=== PATIENT | female | born 1965 | race Caucasian/White ===

== ENCOUNTER 2022-09-07 10:41 | Outpatient (CLI) | payer BC, SELFPAY | END 2022-09-07 10:42 | disposition home or self-care (01) | PROVIDERS: PCP Nurse Practitioner Family; Visit Provider Nurse Practitioner Family | DX: Z00.00 Encounter for general adult medical examination without abnormal findings (principal); R53.83 Other fatigue; R73.9 Hyperglycemia, unspecified; E78.5 Hyperlipidemia, unspecified; R35.1 Nocturia | CPT/HCPCS: 80053; 80061; 81015; 84443; 85025; 87086 ==

== ENCOUNTER 2022-10-26 07:47 | Outpatient (CLI) | payer BC, SELFPAY ==
--- NOTE | 2022-10-26 10:27 | W.ANESCHARGE ---
Anesthesia Charges Start Date/Time Anesthesia Start Date: 10/26/22 Anesthesia Start Time: 09:26 Stop Date/Time Anesthesia Stop Date: 10/26/22 Anesthesia Stop Time: 10:18
== END 2022-10-26 07:48 | disposition home or self-care (01) ==
LOC: OP CLINIC 07:48
PROVIDERS: PCP Nurse Practitioner Family; Visit Provider Surgery
DX: Z12.11 Encounter for screening for malignant neoplasm of colon (principal); K63.5 Polyp of colon; K57.30 Diverticulosis of large intestine without perforation or abscess without bleeding; K62.1 Rectal polyp; K64.4 Residual hemorrhoidal skin tags; Z86.010 Personal history of colon polyps
CPT/HCPCS: 45385; 811; 88305; J2704

== ENCOUNTER 2022-11-17 17:25 | Outpatient (CLI) | payer BC, SELFPAY ==
--- NOTE | 2022-11-17 18:00 | CRLHL7_ITS ---
For Patients: As a result of the Century Cures Act, medical imaging exams and procedure reports are released immediately into your electronic medical record. You may view this report before your referring provider. If you have questions, please contact your health care provider. BILATERAL DIGITAL SCREENING MAMMOGRAM WITH TOMOSYNTHESIS AND COMPUTER-AIDED DETECTION CLINICAL HISTORY: Routine screening exam. COMPARISON: 02/06/2021, 01/23/2021, 11/14/2018. TECHNIQUE: Digital mammogram in CC and MLO projections including computer-aided detection (CAD). Tomosynthesis utilized. BREAST COMPOSITION: The breasts are heterogeneously dense, which may obscure small masses. FINDINGS: RIGHT Breast: No suspicious findings. LEFT Breast: Asymmetric density within the lower outer quadrant 9 cm from the nipple. IMPRESSION: LEFT breast asymmetry/mass. RECOMMENDATIONS: Additional mammographic views of the LEFT breast including 3D spot compression CC/MLO. LEFT breast ultrasound may also be required. BI-RADS Category 0: Incomplete: Need Additional Imaging Evaluation and/or Prior Mammograms for Comparison [facility] will contact the patient for follow-up. A lay language report of this examination will be provided to the patient. Dictated by Mohit Maharaj MD @ 11/18/2022 11:57:56 AM jj/Dictated by: Mohit Maharaj MD @ 11/18/2022 11:57:00 AM (Electronically Signed)
== END 2022-11-17 17:26 | disposition home or self-care (01) ==
LOC: MAMMO 17:26
PROVIDERS: PCP Nurse Practitioner Family; Visit Provider Nurse Practitioner Family
DX: Z12.31 Encounter for screening mammogram for malignant neoplasm of breast (principal); N63.20 Unspecified lump in the left breast, unspecified quadrant; R92.2 Inconclusive mammogram
CPT/HCPCS: 77063; 77067

== ENCOUNTER 2022-11-25 07:34 | Outpatient (CLI) | payer BC, SELFPAY ==
--- NOTE | 2022-11-25 07:45 | CRLHL7_ITS ---
For Patients: As a result of the Cures Act, medical imaging exams and procedure reports are released immediately into your electronic medical record. You may view this report before your referring provider. If you have questions, please contact your health care provider. LEFT DIAGNOSTIC MAMMOGRAM WITH COMPUTER-AIDED DETECTION AND TOMOSYNTHESIS LEFT BREAST ULTRASOUND CLINICAL HISTORY: LEFT breast mass/asymmetry. COMPARISON: 11/17/22, 02/06/2021, 06/21/2010, 11/14/2018. TECHNIQUE: Digital LEFT mammogram in 2 projections. Computer-aided detection and tomosynthesis were used. Real-time ultrasound imaging of LEFT breast with imaging documentation. BREAST COMPOSITION: The breasts are heterogeneously dense, which may obscure small masses FINDINGS: 3D spot compression cc/MLO LEFT breast mammogram images submitted. Persistent asymmetric density noted within the lower outer quadrant of the LEFT breast. Mild associated distortion may be present as well. No suspicious calcifications. Targeted LEFT breast ultrasound performed in the lower outer quadrant at 4 o`clock 8 cm from the nipple. In this location there is heterogeneously dense tissue which is difficult to definitively measure. Subtle shadowing is suspected as well. This area measures approximately 3.8 x 3.2 cm. IMPRESSION: Ill-defined area of indeterminate dense heterogeneous tissue in the LEFT breast 4 o`clock 8 cm from the nipple with suggestion of faint shadowing. RECOMMENDATIONS: Ultrasound-guided core needle biopsy recommended. BI-RADS Category 4: Suspicious Results and recommendations discussed with the patient. A lay language report of this examination will be provided to the patient. Dictated by Mohit Maharaj MD @ 11/25/2022 12:49:05 PM/julianne ANJANA/Dictated by: Mohit Maharaj MD @ 11/25/2022 12:49:00 PM (Electronically Signed)
--- NOTE | 2022-11-25 08:15 | CRLHL7_ITS ---
For Patients: As a result of the Century Cures Act, medical imaging exams and procedure reports are released immediately into your electronic medical record. You may view this report before your referring provider. If you have questions, please contact your health care provider. PLEASE SEE LEFT DIAGNOSTIC MAMMOGRAM OF SAME DAY. CRL:julianne ANJANA/Dictated by: Mohit Maharaj MD @ 11/25/2022 12:49:00 PM (Electronically Signed)
== END 2022-11-25 07:35 | disposition home or self-care (01) ==
LOC: MAMMO 07:35
PROVIDERS: PCP Nurse Practitioner Family; Visit Provider Nurse Practitioner Family
DX: N63.20 Unspecified lump in the left breast, unspecified quadrant (principal); R92.8 Other abnormal and inconclusive findings on diagnostic imaging of breast
CPT/HCPCS: 76642; 77065; G0279

== ENCOUNTER 2022-12-01 09:54 | Outpatient (CLI) | payer BC, SELFPAY ==
--- NOTE | 2022-12-01 10:56 | CRLHL7_ITS ---
Patient: JEREMIAH GONZÁLES Facility:?[facility] Patient ID:?[id number] Site Patient ID:?[id number]. Site :?[id number] Study:?US-Breast Procedure -12/01/2022 11:07:17 AM Ordering Physician:Neel Shook Final Report: ADDENDUM: Pathology consistent with invasive lobular carcinoma. This is concordant. Appropriate action recommended. Dictated by: Mohit Maharaj MD @12/09/2022 10:51:34 AM / CRL:shar ULTRASOUND-GUIDED BREAST BIOPSY AND POST-BIOPSY DIGITAL MAMMOGRAM FOR BIOPSY MARKER PLACEMENT CLINICAL HISTORY: Indeterminate suspicious lesion. COMPARISON STUDIES: 11/25/2022, 11/17/2022. TECHNIQUE: Real-time ultrasound with image documentation was used for targeting the breast lesion. Core biopsy specimens were obtained using an automated gun with a 18- gauge biopsy needle. Post-biopsy CC and ML digital mammograms were obtained to document position of the biopsy marker. CONSENT and TIME OUT: The procedure, risks, and alternatives were explained to the patient and a consent was signed. Herreid Protocol was followed including pre-procedure verification that relevant information/documentation was available, reviewed and properly matched to the patient; consent accurate and complete; and equipment and supplies available. Time Out was conducted just prior to starting procedure to verify the four required elements: patient identity, correct side/site marked (if applicable), procedure, relevant images/results properly labeled and displayed (if applicable). PROCEDURE: The patient was positioned supine on the ultrasound table. The breast was prepped with ChloraPrep. 8 cc 1 percent lidocaine used for local anesthesia. Core samples were obtained. A sterile metal biopsy clip was placed percutaneously to anju the lesion position within the breast. The specimens were placed in 10% formalin and sent to the pathology department. Pressure was held on the biopsy site until all bleeding subsided. The skin incision was closed with Steri-Strips. An ice pack was positioned over the biopsy site. Post-biopsy instructions were reviewed with the patient, and a written copy was given to her. LATERALITY: LEFT breast. LESION: Ill-defined heterogeneously hypoechoic lesion measuring approximately 3.8 cm at 4 o`clock 8 cm from the nipple. SUSPICION FOR MALIGNANCY: High. NUMBER OF SAMPLES: 5. BIOPSY CLIP SHAPE: Oval. PROXIMITY OF CLIP TO TARGET: Within. IMPRESSION: Ultrasound-guided breast biopsy. When the pathology report is available, an addendum to this report will be made. ACR not applicable Dictated by Mohit Maharaj MD @ 12/01/2022 12:11:02 PM/julianne ANJANA/Dictated by: Mohit Maharaj MD @ 12/01/2022 12:11:00 PM Signed by: Mohit Maharaj @ 12/02/2022 5:26:50 AM (Electronic Signature) Signed by:?Mohit Maharaj MD @12/09/2022 12:35:56 PM (Electronic Signature)
--- NOTE | 2022-12-01 11:00 | CRLHL7_ITS ---
For Patients: As a result of the Century Cures Act, medical imaging exams and procedure reports are released immediately into your electronic medical record. You may view this report before your referring provider. If you have questions, please contact your health care provider. PLEASE SEE LEFT ULTRASOUND-GUIDED BIOPSY OF SAME DAY. CRL:julianne ANJANA/Dictated by: Mohit Maharaj MD @ 12/01/2022 12:11:00 PM (Electronically Signed)
== END 2022-12-01 09:55 | disposition home or self-care (01) ==
LOC: MAMMO 09:54
PROVIDERS: PCP Nurse Practitioner Family; Visit Provider Nurse Practitioner Family
DX: N63.20 Unspecified lump in the left breast, unspecified quadrant (principal); R92.8 Other abnormal and inconclusive findings on diagnostic imaging of breast
CPT/HCPCS: 19083; 77065; 88305; 88360; 88361; A4648; A4649

== ENCOUNTER 2022-12-07 13:25 | Outpatient (CLI) | payer BC, SELFPAY ==
--- NOTE | 2022-12-07 13:45 | CRLHL7_ITS ---
For Patients: As a result of the 21st Century Cures Act, medical imaging exams and procedure reports are released immediately into your electronic medical record. You may view this report before your referring provider. If you have questions, please contact your health care provider. BILATERAL BREAST MRI WITHOUT AND WITH GADOLINIUM, 12/08/2022 CLINICAL HISTORY: New diagnosis LEFT breast cancer, invasive lobular carcinoma ERPR positive. INDICATION FOR BREAST MRI: Staging of newly diagnosed breast cancer and screening of contralateral breast. Regional lymph nodes will also be assessed. COMPARISON STUDIES: 01/23/2021, 02/06/2021, 11/17/2022, 11/25/2022, 12/01/2022. CONTRAST: Dotarem 15 mL. TECHNIQUE: The patient was positioned prone using a breast coil. Multiple imaging sequences were obtained using 1-1.5 mm thick slices with no gap. The image sequences include T2-weighted STIR in the axial plane, T1-weighted nonfat-saturated gradient echo in the axial plane, pre- and post-contrast T1-weighted FLASH 3D with fat suppression in the axial plane, and T1-weighted FLASH high resolution 3D with fat suppression in the sagittal plane. Image post-processing was performed on a [employer] workstation. Complex 3D rendering including maximum intensity projections (MIPS) and volumetric renderings were obtained to optimize visualization of the extent of pathology and relationship to the nipple, skin, and chest wall. This aids in determining feasibility of breast conservation surgery. Subtraction, multiplanar reconstruction, mean curve determination, and angiogenesis mapping were also performed. The study was technically adequate. FINDINGS: Amount of Fibroglandular Tissue: Heterogeneous. Breast Background Enhancement: Mild. RIGHT Breast: No suspicious mass or non-mass enhancement. LEFT Breast: At the site of the newly diagnosed breast cancer there is a large area of architectural distortion. No real increased vascularity. No discrete mass identified. Approximate size of the distortion with minimal enhancement is 6 x 5 x 3 cm. Lymph Nodes: No suspicious lymph nodes. IMPRESSIONS AND RECOMMENDATIONS: Newly diagnosed LEFT breast cancer is not well visualized on MRI. Approximate size is 6 x 5 x 3 cm. There is an area of architectural distortion but no increased enhancement. Recommend using ultrasound and mammography to determine extent of disease. Consider either stereotactic core biopsy or second ultrasound biopsy to determine disease extent if this would impact treatment. The RIGHT breast is negative. No enlarged lymph nodes. BI-RADS Category 6: Known biopsy-proven malignancy Dictated by Randi Meyer MD @ 12/09/2022 10:48:47 AM jj/Dictated by: Randi Meyer MD @ 12/09/2022 10:49:00 AM (Electronically Signed)
== END 2022-12-07 13:26 | disposition home or self-care (01) ==
LOC: MRI 13:26
PROVIDERS: PCP Nurse Practitioner Family; Visit Provider Surgery
DX: C50.912 Malignant neoplasm of unspecified site of left female breast (principal)
CPT/HCPCS: 77049; A9575

== ENCOUNTER 2022-12-15 16:07 | Outpatient (CLI) | payer BC, SELFPAY | END 2022-12-15 16:08 | disposition home or self-care (01) | PROVIDERS: PCP Nurse Practitioner Family; Visit Provider Nurse Practitioner Family | DX: Z01.818 Encounter for other preprocedural examination (principal) | CPT/HCPCS: 80053; 85025 ==

== ENCOUNTER 2022-12-24 06:45 | Day surgery (SDC) | payer BC, SELFPAY ==
[2022-12-24] VITALS (21 sets, daily range): BP systolic 107–134; BP diastolic 61–81; PULSE 58–83; RESP 12–16; TEMP 36.2–36.9; O2SAT 93–98; BMI 26.4
[2022-12-24] MEDS: LACTATED RINGERS 1000 ML 1,000 ML 100 ML IV ×3 (07:30→21:39)
[2022-12-24] MEDS: SODIUM CHLORIDE 0.9 % (FLUSH) 10 ML SYRINGE IVF (07:41)
--- NOTE | 2022-12-24 08:00 | CRLHL7_ITS ---
For Patients: As a result of the Century Cures Act, medical imaging exams and procedure reports are released immediately into your electronic medical record. You may view this report before your referring provider. If you have questions, please contact your health care provider. SENTINEL LYMPH NODE LOCALIZATION INJECTION CLINICAL HISTORY: Left breast cancer LATERALITY: Left breast TECHNIQUE: With the patient supine, the periareolar left breast was cleansed with alcohol. 1 cc of 1% buffered lidocaine was injected intradermal in the upper outer periareolar region of the left breast with a 25-gauge needle. Next, 0.53 millicuries of Tc99m filtered sulfur Colloid in a volume of 1 cc was injected intradermal in the upper outer periareolar breast with a 25-gauge needle. The patient tolerated the procedure well and there were no immediate complications. IMPRESSION: Injection for sentinel lymph node of the left breast. Dictated by Mohit Maharaj MD @ 12/24/2022 12:08:52 PM (Electronically Signed)
--- NOTE | 2022-12-24 08:24 | W.ANESCHARGE ---
Anesthesia Charges Start Date/Time Anesthesia Start Date: 12/24/22 Anesthesia Start Time: 08:50 Stop Date/Time Anesthesia Stop Date: 12/24/22 Anesthesia Stop Time: 11:41
[2022-12-24] MEDS: CEFAZOLIN 2 GM INJ IVP (09:02)
[2022-12-24] MEDS: ISOSULFAN BLUE 5 ML VIAL INJECTION (09:03)
--- NOTE | 2022-12-24 10:50 | W.PM.NB ---
Nerve Block Nerve Block Time Seen by Provider: 09:00 Date Seen: 12/24/22 Type of block requested by surgeon for post-operative analgesia: intercostal and intercostal add on Side: bilateral Time out performed: Yes Verification of patient name: Yes Verification of date of : Yes Site marking: site marked Name of person performing procedure: Jose Continuous monitoring Was continuous monitoring of O2 sat, B/P, safe and vault installer, recorded every 15 minutes?: Yes Procedure Checklist: sterile prep, needles and gloves Ultrasound guided. Images saved: Yes Medications given in 5ml increments after negative aspiration: Marcaine %: 0.25 mL: 36 Needle gauge: 20 and Exparel mL: 14 Needle gauge: 20 Block Charges Block Charge (with Pro Fee): Intercostal Nerve Block Use of Ultrasound Machine for Block: Yes- US Guidance/pain block
--- NOTE | 2022-12-24 11:46 | PM.GSPRC ---
Operative Note Pre-op diagnosis: Invasive lobular carcinoma of left breast Post-op diagnosis: Same Type of Procedure: 1. Bilateral mastectomy 2. Injection of radionucleotide tracer 3. [place] lymph node biopsy, left axilla Indications: Patient is a 57-year-old female with recent diagnosis invasive lobular carcinoma of the left breast. Different treatment options and surgical options were discussed with the patient at length, please see consultation note for full discussion. Risks and benefits of operative intervention were discussed at length with the patient. Risks included but was not limited to: Bleeding, infection, risk of damage to surrounding structures, possible need for additional procedures and postoperative complications such as pneumonia, pulmonary emboli or [place]. We also reviewed the risk of lymphedema and injury, which can occur with any axillary dissection. All questions and concerns were addressed with the patient agreeing to proceed. Procedure Description: Prior to going to the operating room the patient was injected with radionucleotide tracer in pre induction. After obtaining informed consent, the patient was then brought to the operating room and prepped and draped in standard sterile fashion. A timeout was taken for patient safety. I injected 3 cc of lymphazurin blue in the patient's left breast. I then performed breast massage for a period of several minutes. I performed an elliptical incision on the left breast, extending the incision laterally onto the abdominal wall. I started by dissecting the subcutaneous tissues using electrocautery. The breast flaps were created circumferentially, dissecting all the breast tissue off of the overlying skin superiorly up to the clavicle, medially to the lateral border of the sternum, laterally out to the latissimus and inferiorly to the inferior aspect of the breast fold. Once flaps had been raised in all 4 directions down to the level of the fascia, the breast was taken off of the chest wall. I included the fascia in my dissection. The underlying pectoralis muscle was inspected and hemostasis was appreciated. The breast was removed through the incision and marked with a stitch at 12 o clock. It was sent to pathology for immediate assessment, where the margins were found to be negative. The size of the tumor was approximately 4-5 cm, with closest margin on the posterior at 1 mm. There was involvement of the underlying fascia. I then proceeded to take out the sentinel lymph nodes through the mastectomy incision. Using the Neoprobe I identified the sentinel lymph node. A single node was identified, which was grossly normal. The specimen was then passed off the back table and sent for a frozen evaluation, which came back as no evidence of malignancy. Background counts in the axilla were low. A 15 Sammar[place] drain was placed onto the chest wall and secured with a 2 0 nylon stitch. The incision was brought together with several interrupted 3-0 Vicryl. The skin was closed with a 4-0 running subcuticular stitch. We changed our outer gloves and gowns and moved to a clean setup before proceeding with this portion of the procedure. I then proceeded to perform contralateral prophylactic mastectomy in the same fashion. I made an elliptical incision, with again incision extending laterally on the abdominal wall. I started by dissecting the subcutaneous tissues using electrocautery. The breast flaps were created circumferentially, dissecting all the breast tissue off of the overlying skin superiorly up to the clavicle, medially to the lateral border of the sternum, laterally out to the latissimus and inferiorly to the inferior aspect of the breast fold. Once flaps had been raised in all 4 directions down to the level of the fascia, the breast was taken off of the chest wall. I included the fascia in my dissection. The breast was removed through the incision and marked with a stitch at 12 o clock. It was sent to pathology for immediate assessment, where no obvious abnormalities were identified. A 15 Sammarinese drain was placed onto the chest wall and secured with a 2-0 nylon stitch. The incision was brought together with several interrupted 3-0 Vicryl. The skin was closed with a 4-0 running subcuticular stitch. Steri-Strips were placed over both incisions and sterile dressings applied, including a double Kaden wrap to apply compression to the area. The patient was then woken and transported to the recovery area in stable condition. ? The patient tolerated the procedure well. Findings: Bilateral mastectomy. Large tumor of left breast identified with margins negative. Single sentinel lymph node removed from left axilla with frozen pathology negative for metastatic disease. Bilateral drains in place Anesthesia: GETA Surgeon: Ethel Paul MD Estimated blood loss (mL): 25 Additional Specimen Information: 1. Left breast 2. [place] lymph node, left axilla 3. Right breast Condition: stable Disposition: PACU Date of procedure: 12/24/22 [place] Node Biopsy for Breast Cancer Operation Performed with Curative Intent: Yes Tracers used to Identify sentinel nodes in the upfront surgery (non-neoadjuvant) setting: Dye and Radioactive Tracer All nodes (colored or non-colored) present at the end of a dye filled lymphatic channel were removed: Yes All significantly radioactive nodes were removed: Yes All palpably suspicious nodes were removed: Yes Biopsy proven positive nodes marked with clips prior to chemotherapy were identified and removed: Not Applicable
--- NOTE | 2022-12-24 11:50 | W.ANESCHARGE ---
Anesthesia Charges Start Date/Time Anesthesia Start Date: 12/24/22 Anesthesia Start Time: 08:50 Stop Date/Time Anesthesia Stop Date: 12/24/22 Anesthesia Stop Time: 11:41
--- NOTE | 2022-12-24 15:10 | PC.NURSE ---
End of shift nursing note, care provided from pt's admission from PACU at 1215 to 1500: Pt alert and oriented, drowsy initially, pleasant and cooperative. Vitals stable, on RA. Denies pain. Voided x2 to since admission from PACU, initial in bedpan d/t drowsiness then up to toilet w/ Ax2. PHYLICIA drains patent, x1 on each side of chest, L side 20ml output of blood drainage and 5ml output on R side. Dressing and NAY wrap to chest CDI. Family at bedside. Tolerating ice chips. TEDs and SCDs in place. Call light within reach.
[2022-12-24] MEDS: HYDROCODONE-ACETAMIN 5-325 MG 1 TAB PO ×2 (15:36→19:46)
[2022-12-24] MEDS: IBUPROFEN 600 MG TABLET PO (18:28)
--- NOTE | 2022-12-24 18:44 | PC.NURSE ---
End of shift note: Patient alert and oriented x4 pleasant and cooperative with cares. VSS, on RA. [place] administered x1 for pain 09/28, PRN ibuprofen administered for headache x1. Voided x2 w/assist of 1. PHYLICIA drains patent, x1 on each side of chest, L side 60ml output of blood drainage and 10ml output on R side. Dressing and NAY wrap to chest C/D/I but dressing on left side PHYLICIA drain needed changing, called Dr. Pepe and updated her. okayed to change dressing and notify if soaked through again. Family at bedside. Tolerating a regular diet. TEDs and SCDs in place. Call light within reach.
--- NOTE | 2022-12-24 23:34 | PM.EN ---
Chart Event Note Chart Event Note: I was called by the RN this evening. The patient had earlier saturated her left PHYLICIA drain sponge. There was a small amount of blood at the skin opening from the PHYLICIA drain. At the time, RN felt the chest to be flat. Drain output had been only approximately 10 cc. The patient again saturated a drain sponge and clood was dripping from the PHYLICIA entrance site. I was called. I came to examine the patient. The left chest is much lechuga than the right side and ecchymotic. The skin was not tense. Drain output remained low but bloody. Hgb was 11. Blood pressure and heart rate within normal limits. I discussed with the patient that She has a hematoma at the surgical site and I recommended evacuation in the OR to prevent further bleeding and complications from the hematoma. She agreed to proceed and the OR crew was called in emergently. She last ate a meal around 6 p.m. and did have crackers in the evening.
--- NOTE | 2022-12-24 23:43 | PM.GSPRC ---
Operative Note Pre-op diagnosis: Left chest wall hematoma status post mastectomy Post-op diagnosis: Same Type of Procedure: Left chest hematoma evacuation Indications: The patient is a 57-year-old female with invasive lobular carcinoma of the left breast. She underwent bilateral mastectomy and left axillary sentinel node biopsy today. Postoperatively she developed a hematoma in the left chest wall and significant bloody drainage from her drain site. I recommended returning to the OR for evacuation and to ensure hemostasis. Procedure Description: After discussing the risks and benefits of the procedure, the patient signed informed consent.? The operative site was marked and the patient was brought to the operating room and placed on the operating table in supine position.? Care was taken to pad the patient's pressure points.?? The patient was then intubated by anesthesia.??Of note, in the 30 minutes between first seeing her and surgery, she was already noted to have soaked 2 drain sponges with blood at her drain site. The operative site was then prepped and draped in the usual sterile fashion.? A time-out was then performed. The medial 2/3 of the incision was opened, cutting the sutures with both a scissor and a knife. Approximately 100 mL of clot was removed. There was a small amount of bleeding on the left anterior lateral chest on the pectoralis muscle. Medially on the superior skin flap there were 2 vessels that were bleeding. These were cauterized. The clot was primarily located medially on the chest wall in the area of the bleeding vessels that were cauterized. The axilla was free of bleeding. There did not appear to be any bleeding coming from around the drain site internally. Irrigation was used to identify any further areas of bleeding. There were none. The space was irrigated with diluted Betadine. Lan was then placed on the chest wall. The 15 Bel[place]ian drain was repositioned in the space. The wound was then closed with 3 0 Vicryl dermal and 4-0 Monocryl running subcuticular suture. Sterile dressings were then applied. A pressure dressing was then applied. ? The patient was then woken and transported to the recovery area in stable condition. ? The patient tolerated the procedure well. Findings: Clot in the anteromedial aspect of the wound with small bleeding vessel on the superior skin flap Anesthesia: GETA Surgeon: Julieta Pepe MD Estimated blood loss (mL): 15 Condition: stable Disposition: PACU Date of procedure: 12/24/22
--- NOTE | 2022-12-24 23:56 | PC.NURSE ---
End of Shift ([id number]): Patient pleasant and cooperative. Afebrile. Rating pain in chest 3/10 and PRN [place] given x1. Up to bathroom with SBA. Tolerating regular diet with no nausea. PHYLICIA drains stripped x2. No drainage noted on PHYLICIA dressings at start of shift. When rechecked at approx 2130 dressing on left side noted to be saturated with bright red blood. Updated NAY OGNZALEZ wrap and dressing unwrapped and MD in to see patient.
[2022-12-25] VITALS (13 sets, daily range): BP systolic 100–139; BP diastolic 56–73; PULSE 68–86; RESP 16–18; TEMP 36.2–36.4; O2SAT 92–97
[2022-12-25] MEDS: HYDROCODONE-ACETAMIN 5-325 MG 1 TAB PO ×3 (02:03→11:13)
[2022-12-25] MEDS: HYDROmorphone 0.5 mg/0.5 ml inj IVP ×2 (02:03→06:02)
[2022-12-25] MEDS: LACTATED RINGERS 1000 ML 1,000 ML 100 ML IV (02:16)
--- NOTE | 2022-12-25 07:00 | PC.NURSE ---
SHIFT NOTE 23-: Pt back from sx at 0150, alert and oriented, pleasant. Up SBA to BR and tolerated well. Denies SOB and N/V. VSS on RA. ABD pads to chest are CDI, NAY bandage to chest CDI, ice pack to chest, PHYLICIA drains stripped and drained Q4H. PRN Dilaudid and PRN [place] given for pain with pt reporting relief.
[2022-12-25 07:22] LABS: Hemoglobin* 10.1 gm/dL (12.0-16.0)
[2022-12-25] MEDS: ONDANSETRON 2 MG/ML inj IVP (07:28)
--- NOTE | 2022-12-25 10:10 | PM.DS1 ---
DS: Providers Provider Date Seen: 12/25/22 Date of admission: 12/24/22 Primary care physician: Bouchra Acevedo APRN, FOURDRINIER OPERATOR Attending Physician on discharge: Ethel Paul MD Date of Discharge: 12/25/22 DS: Diagnosis Discharge Diagnosis (1) S/P bilateral mastectomy: Status: Acute (2) Invasive lobular carcinoma of breast in female: Status: Acute DS: Summary Hospital Course Hospital Course: The patient was admitted to the hospital after bilateral mastectomy for invasive lobular carcinoma of the left breast. Postoperatively she developed a hematoma of the left breast and bleeding from her drain site. She was taken back to the OR where the hematoma was evacuated and a small bleeding vessel on the superior skin flap was cauterized. She was admitted overnight and the following morning she was stable with no further evidence of bleeding. She was deemed safe for discharge. She was tolerating a diet and ambulating without difficulty. Status at Discharge Functional status at discharge: independent ambulation Time Spent with Patient Time attestation: Total time spent providing and/or coordinating discharge services: Exam Narrative: Exam Narrative: General: No acute distress CV: Regular rate and rhythm Respiratory: Breathing nonlabored on room air Chest: Dressing examined x2. Over the course of the morning, she has not had reaccumulation of hematoma in her left chest. She does have ecchymosis on the left chest wall. Drainage is bloody. 50 mL out this morning compared to 30 on the right. Const: Vital Signs, click to edit/add: Vital Signs - 24 hr 12/24/22 11:36 12/24/22 11:40 12/24/22 11:45 Temperature 97.8 F Pulse Rate 82 78 77 Pulse Rate [Pulse Oximeter] Respiratory Rate 14 12 14 Blood Pressure 134/81 123/77 134/70 Blood Pressure [Ri ght Arm] Pulse Oximetry 97 97 98 Oxygen Delivery Me thod Nasal Cannula Nasal Cannula Nasal Cannula Oxygen Flow Rate 4 4 4 12/24/22 11:50 12/24/22 11:55 12/24/22 12:00 Temperature Pulse Rate 78 73 76 Pulse Rate [Pulse Oximeter] Respiratory Rate 14 12 12 Blood Pressure 132/71 123/79 128/73 Blood Pressure [Ri ght Arm] Pulse Oximetry 98 98 98 Oxygen Delivery Me thod Nasal Cannula Nasal Cannula Nasal Cannula Oxygen Flow Rate 4 4 4 12/24/22 12:05 12/24/22 12:11 12/24/22 12:17 Temperature 97.1 F L Pulse Rate 76 74 77 Pulse Rate [Pulse Oximeter] Respiratory Rate 14 14 16 Blood Pressure 119/73 116/68 Blood Pressure [Ri ght Arm] 124/74 Pulse Oximetry 98 98 Oxygen Delivery Me thod Nasal Cannula Nasal Cannula Room Air Oxygen Flow Rate 4 4 12/24/22 12:17 12/24/22 12:30 12/24/22 12:45 Temperature 97.1 F L 97.1 F L 97.2 F L Pulse Rate Pulse Rate [Pulse Oximeter] 77 81 69 Respiratory Rate 16 16 16 Blood Pressure Blood Pressure [Ri ght Arm] 124/74 128/78 119/72 Pulse Oximetry 94 94 94 Oxygen Delivery Me thod Room Air Room Air Room Air Oxygen Flow Rate 0 0 12/24/22 13:00 12/24/22 13:15 12/24/22 14:00 Temperature 97.2 F L 98.4 F 98.4 F Pulse Rate Pulse Rate [Pulse Oximeter] 68 69 68 Respiratory Rate 16 16 16 Blood Pressure Blood Pressure [Ri ght Arm] 114/68 114/71 113/69 Pulse Oximetry 93 97 94 Oxygen Delivery Me thod Room Air Room Air Room Air Oxygen Flow Rate 0 0 0 12/24/22 14:30 12/24/22 15:00 12/24/22 15:00 Temperature 98.2 F Pulse Rate Pulse Rate [Pulse Oximeter] 77 66 66 Respiratory Rate 16 16 16 Blood Pressure Blood Pressure [Ri ght Arm] 112/65 107/62 Pulse Oximetry 96 95 Oxygen Delivery Me thod Room Air Room Air Oxygen Flow Rate 0 12/24/22 16:00 12/24/22 18:00 12/24/22 19:00 Temperature 98.0 F 98.0 F 97.7 F Pulse Rate Pulse Rate [Pulse Oximeter] 68 76 79 Respiratory Rate 16 16 16 Blood Pressure Blood Pressure [Ri ght Arm] 118/70 122/70 116/62 Pulse Oximetry 96 95 95 Oxygen Delivery Me thod Room Air Room Air Room Air Oxygen Flow Rate 0 0 12/24/22 22:00 12/25/22 01:52 12/25/22 01:52 Temperature 97.2 F L 97.3 F L Pulse Rate 77 Pulse Rate [Pulse Oximeter] 83 83 Respiratory Rate 16 16 Blood Pressure Blood Pressure [Ri ght Arm] 126/69 126/69 127/67 Pulse Oximetry 94 Oxygen Delivery Me thod Room Air Room Air Oxygen Flow Rate 0 0 12/25/22 02:00 12/25/22 02:15 12/25/22 02:30 Temperature 97.2 F L 97.3 F L 97.2 F L Pulse Rate Pulse Rate [Pulse Oximeter] 78 85 77 Respiratory Rate 16 18 18 Blood Pressure Blood Pressure [Ri ght Arm] 124/71 137/73 139/71 Pulse Oximetry 95 97 96 Oxygen Delivery Me thod Room Air Room Air Room Air Oxygen Flow Rate 0 0 0 12/25/22 02:45 12/25/22 03:00 12/25/22 03:30 Temperature 97.2 F L 97.3 F L 97.4 F L Pulse Rate Pulse Rate [Pulse Oximeter] 78 70 68 Respiratory Rate 16 16 16 Blood Pressure Blood Pressure [Ri ght Arm] 131/71 127/67 107/60 Pulse Oximetry 92 93 92 Oxygen Delivery Me thod Room Air Room Air Room Air Oxygen Flow Rate 0 0 0 12/25/22 04:00 12/25/22 04:30 12/25/22 05:00 Temperature 97.5 F L 97.4 F L 97.4 F L Pulse Rate Pulse Rate [Pulse Oximeter] 72 72 76 Respiratory Rate 16 18 18 Blood Pressure Blood Pressure [Ri ght Arm] 100/57 L 105/62 102/58 L Pulse Oximetry 94 92 94 Oxygen Delivery Me thod Room Air Room Air Room Air Oxygen Flow Rate 0 0 0 12/25/22 06:00 12/25/22 07:00 Temperature 97.6 F 97.1 F L Pulse Rate Pulse Rate [Pulse Oximeter] 84 86 Respiratory Rate 18 16 Blood Pressure Blood Pressure [Ri ght Arm] 115/61 115/64 Pulse Oximetry 92 95 Oxygen Delivery Me thod Room Air Room Air Oxygen Flow Rate 0 DS: Data Data Completed and Pending Labs on day of discharge: Labs from last 24 hours 12/25/22 12/24/22 06:20 22:15 Hgb 10.1 L 11.0 L Discharge Plan Discharge Disposition: Home, Self-Care Discharging Surgeon: Julieta Pepe Follow-Up Appointment: [facility] - Dec 31 Prescriptions: New hydrocodone-acetaminophen 5-325 mg tablet 1 tab PO Q6H PRN (Reason: pain) Qty: 20 0RF senna 8.6 mg capsule 8.6 mg PO DAILY PRN (Reason: constipation) Qty: 90 0RF Continued atorvastatin 20 mg tablet 20 mg PO QPM 90 Days Qty: 90 3RF Activity Level: No strenuous activity Activity Detail: No lifting greater than 10 lb or strenuous activity will drains are in place. Discharge Diet: Regular Patient Instructions: Deep Sedation (DC), Post-Operative Instructions: Breast Surgery Additional Instructions: You were prescribed a narcotic pain medication. In addition you may supplement with Tylenol and/or ibuprofen. Be sure to not exceed greater than 4 g of Tylenol in a 24 hour period. While on narcotic pain medicine please take stool softeners. A prescription of stool softeners has been sent to the pharmacy. Stop if having greater than 2 stools per day. You can shower right away. Do not soak in a bath or swim for 2 weeks. If you notice the left breast again appears to be full, you have significant bleeding from the drain site or you are feeling lightheaded or dizzy, please call or return to be seen. You have a drain on either side, please record the daily drainage from each of these drains. An appointment will be made for you to follow up with me in clinic on 12/31/2022. Forms: [facility] Info Instructions Follow-up: Ethel Paul MD [Staff Physician] - (Please schedule here in [facility] for 12/31/2022. Okay to double book if needed.) Bouchra Acevedo APRN, FOURDRINIER OPERATOR [Primary Care Provider] - Discharge Orders: Discharge Order (Routine); Ordered 12/25/22 Ordered By: Julieta Pepe
--- NOTE | 2022-12-25 14:10 | PC.NURSE ---
Addendum entered by Ping Haley RN 12/25/22 15:24: IV removed, catherter intact. Original Note: Discharge: Patient alert and oriented, cooperative and pleasant. Independently ambulates in room and hallways. Bilateral drains emptied R side 20cc and L side 65cc total for shift. VSS, lung sounds clear, dressing CDI. Surgeon examined and changed bandage, no further orders noted. Patient discharged at 1400 accompanied by sister. Belonging sheet signed, discharge documentation signed, patient verbalized understanding of discharge instructions.
--- NOTE | 2023-01-05 13:47 | P.ANES_ITS ---
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
== END 2022-12-25 14:00 | disposition home or self-care (01) ==
LOC: MEDSURG 12:23 → OR 13:07 → MEDSURG 13:07 → OR 01-05 13:40
PROVIDERS: Surgery; PCP Nurse Practitioner Family; Visit Provider Surgery
PROC: (CPT 19303; principal; 2022-12-24 08:45)
PROC: (CPT 19303; 2022-12-24 08:45)
DX: C50.812 Malignant neoplasm of overlapping sites of left female breast (principal); L76.32 Postprocedural hematoma of skin and subcutaneous tissue following other procedure; G89.18 Other acute postprocedural pain
CPT/HCPCS: 19303; 38500; 21501; 00400; 01610; 36415; 38792; 64420; 64421; 76942; 85018; 88307; 99140; A9270; A9541; C9290; J0330; J0665; J0690; J1100; J1170; J1200; J1885; J2405; J2704; J3010; J3475; J3490; J7120

== ENCOUNTER 2023-01-20 13:16 | Outpatient (CLI) | payer BC, SELFPAY ==
--- NOTE | 2023-01-20 13:30 | CRLHL7_ITS ---
For Patients: As a result of the Century Cures Act, medical imaging exams and procedure reports are released immediately into your electronic medical record. You may view this report before your referring provider. If you have questions, please contact your health care provider. DXA BONE MINERAL DENSITY STUDY Current height (in): 67.0. Weight (lb): 154.0. Menopause age: 57. Ethnicity: White. Reason for exam: Monitoring; aromatase inhibitor; baseline. 1. Have you had a previous hip or vertebral fracture? No. 2. Have you had any fractures during your adult life which did not result from significant trauma (e.g., auto accident)? No. 3. Did either of your parents have a hip fracture? No. 4. Do you smoke? No. 5. Have you ever taken Glucocorticoids? No. 6. Do you have rheumatoid arthritis? No. 7. Do you have secondary osteoporosis? No. 8. Do you drink 3 or more alcoholic drinks per day? No. 9. Are you being treated for osteoporosis? No. 10. Have you ever taken any of the following medications: Actonel, Evista, Fosamax, Miacalcin, Reclast, Boniva, Forteo, HRT (i.e. estrogen/hormone therapy), Protelos, Prolia, Vitamin D, Calcium, other ??? please specify. ANSWER: Yes, vitamin D. 11. Do you have any of the following medical conditions: Anorexia or bulimia, asthma or emphysema, end stage renal disease, hyperparathyroidism, any seizure disorders, cancer, inflammatory bowel diseases, hysterectomy, other ??? please specify. ANSWER: Yes, cancer. 12. What was your maximum height (inches)? 67. 13. Do you perform weight bearing exercise regularly? Yes. 14. Do you regularly consume dairy products? Yes. 15. Do you drink caffeinated beverages? Yes. 16. At what age did your period start? 13. 17. Are you premenopausal? No. 18. How many full-term pregnancies have you had? 0. 19. Have you ever missed your period for more than 6 months in a row (not including or menopause)? No. TECHNIQUE: Bone mineral density study was performed using the [facility]. FINDINGS: The results of the study expressed as bone mineral density (BMD) are as follows: Lumbar spine L2 to L4: BMD: 1.356 g/cm2. T-score: 2.5. Z-score: 3.9. Neck Left: BMD: 0.988 g/cm2. T-score: 1.3. Z-score: 2.5. Total Left: BMD: 1.092 g/cm2. T-score: 1.2. Z-score: 2.1. IMPRESSION: Normal bone density. Mohit Maharaj M.D. Diagnostic Radiologist [email or web address] Transcribed: 11:26 am DW/Dictated by: Mohit Maharaj MD @ 01/21/2023 10:04:00 AM (Electronically Signed)
== END 2023-01-20 13:17 | disposition home or self-care (01) ==
PROVIDERS: PCP Nurse Practitioner Family; Visit Provider Physician Assistant
DX: Z79.811 Long term (current) use of aromatase inhibitors (principal)
CPT/HCPCS: 77080

== ENCOUNTER 2023-06-10 15:30 | Outpatient (RCR) | payer BC, SELFPAY ==
--- NOTE | 2023-05-07 15:55 | ONC.NURNOTE ---
Call to patient to see how she is tolerating Anastrozole. Patient states she is doing good. She reports that initially, she had an upset stomach and looser stools, but this has resolved. Patient denies any questions or concerns. She has follow up on 06/09.
== END 2023-07-13 23:59 | disposition home or self-care (01) ==
LOC: CCIC 15:30
PROVIDERS: PCP Nurse Practitioner Family; Visit Provider Physician Assistant
DX: C50.912 Malignant neoplasm of unspecified site of left female breast (principal); Z17.0 Estrogen receptor positive status [ER+]; Z79.811 Long term (current) use of aromatase inhibitors; Z90.13 Acquired absence of bilateral breasts and nipples; R21 Rash and other nonspecific skin eruption
CPT/HCPCS: 99202; 99205; 99214; G0463

== ENCOUNTER 2023-07-30 14:00 | Outpatient (RCR) | payer BC, SELFPAY | END 2023-11-27 23:59 | disposition home or self-care (01) | PROVIDERS: PCP Nurse Practitioner Family; Visit Provider Surgery | DX: I89.0 Lymphedema, not elsewhere classified (principal); Z51.89 Encounter for other specified aftercare | CPT/HCPCS: 97110; 97140; 97161; 97164; 97165; 97535 ==

== ENCOUNTER 2023-08-24 07:58 | Outpatient (CLI) | payer BC, SELFPAY ==
--- OUTSIDE RECORDS SUMMARY | 2023-08-24 08:01 | XMS_ITS ---
Author Organization [facility] Address [address] [place] [address] Care Team Providers Care Stylist Apprentice Name Role Phone Elsewhere, Pcp Primary Care Provider Unavailabl e Active Problems Problem Noted Date Diagnosed Date Malignant Neoplasm Of Breast Lower Outer Quadrant Female Left 01/21/2023 Cancer Staging:Pathologic stage from 12/24/2022:Stage IB(pT3, pN0(sn), cM0, G2, ER+, RI+, HER2-, Oncotype DX score: 14) - Unsigned Enthesopathy Hip 06/17/2013 Overview: Enthesopathy of hip region Temporomandibular Joint Disorder 06/17/2013 Overview: Temporomandibular joint disorders, unspecified Depression Anxiety 07/01/2007 Current Oncology Plans No current plan information found. Past Plans No past plan information found. Radiation Treatments * Plan Last Treated On Elapsed Days Fractions Treated Prescribed Fraction Dose Prescribed Total Dose [id number] 03/12/2023 18 5 of 5 320 cGy 1,600 cG y [id number] 03/05/2023 11 10 of 10 320 cGy 3,200 cGy Reference Point Last Treated On Elapsed Days Session Dose Total Dose [id number] 03/12/2023 18 320 cGy 4,800 cGy Resolved Problems Problem Noted Date Diagnosed Date Resolved Date Amputation Finger Status Post Left 03/25/2015 11/14/2018 Tear Knee Meniscus Current Initial 10/21/2009 11/14/2018 Sprain Knee Anterior Cruciat e Ligament Initial 10/03/2009 11/14/2018 Tear of lateral cartilage or meniscus of knee, current 10/03/2009 07/27/2017 Arthroplasty Total Hip Repla cement Status Post 10/01/2009 11/14/2018 Overview: Right side 2005. revision 2007. dr. Cornelia Fraga Other Ovarian Cyst Left Side 01/04/2009 07/27/2017 Dermatitis Photocontact 08/23/200710/21 Dysthymia 07/01/2007 11/14/2018 Overview: Depression Anxiety Hypothyroidism 07/01/2007 11/14/2018 Overview: not on replacement, unaware of diagnosis
--- OUTSIDE RECORDS SUMMARY | 2023-08-24 08:01 | XMS_ITS | Referral Summary ---
Author Organization [facility] Address [address] [place] [address] Care Team Providers Care Documentation Supervisor Name Role Phone Elsewhere, Pcp Primary Care Provider Unavailabl e Source Comments Patient records contain information from all sites at [facility]. For routine questions regarding patient records, call [phone] during business hours, M-F 8:00 AM - 5:00 PM Central Time. Record requests for emergency care only can be directed to [phone] at any time.[facility] Allergies Active Allergy Reactions Criticality Noted Date Comments Adhesive Tape-Silicones Rash 07/15/2007 Hydrocodone Nausea Only Medium 10/04/2009 Oxycodone Nausea Only Medium 10/04/2009 Penicillin Hives (Reselect Reaction) 09/24/2009 Medications Medication Sig Dispensed Refills Start Date End Date Status naproxen sodium (ALEVE) 220 mg tablet Aleve 220 mg oral tablet See Instructions, 1 or 2 tabs tid as needed 06/17/2013 Active citalopram (CeleXA) 20 mg tablet Take 1 tablet (20 mg total) by mouth daily. 90 tablet 3 11/14/2018 Active Active Problems Problem Noted Date Diagnosed Date Malignant Neoplasm Of Breast Lower Outer Quadrant Female Left 01/21/2023 Cancer Staging:Pathologic stage from 12/24/2022:Stage IB(pT3, pN0(sn), cM0, G2, ER+, NM+, HER2-, Oncotype DX score: 14) - Unsigned Enthesopathy Hip 06/17/2013 Overview: Enthesopathy of hip region Temporomandibular Joint Disorder 06/17/2013 Overview: Temporomandibular joint disorders, unspecified Depression Anxiety 07/01/2007 Resolved Problems Problem Noted Date Diagnosed Date [...] Overview: not on replacement, unaware of diagnosis Immunizations Name Administration Dates Next Due Td (Adult), adsorbed 09/06/1997 Tdap 03/02/2015 Social History Tobacco Use Types Packs/Day Years Used Date Smoking Tobacco: Former Cigarettes 0.5 40 1 - 12/2022 Smokeless Tobacco: Never Alcohol Use Standard Drinks/Week Comments No 0 (1 standard drink = 0.6 oz pur e alcohol) PHQ-2 Answer Date Recorded PHQ-2 Score 0 12/05/2018 Nutrition Answer Date Recorded Nutrition: EVOO Fat Source Unknown 05/20 Nutrition: Servings of Fruits/Vegetables per Day Not on file 05/20/2020 Dental Answer Date Recorded Dental: Regular Dentist Unknown 05/21/19 21 Sex and Gender Information Value Date Recorded Sex Assigned at Not on file Gender Identity Not on file Sexual Orientation Not on file Last Filed Vital Signs Vital Sign Reading Time Taken Comments Blood Pressure 121/56 01/27/2023 10:48 AM CENTER RECEPTIONIST Pulse 71 01/27/2023 10:48 AM CENTER RECEPTIONIST Temperature 35.9 ??C (96.6 ??F) 03/10/2023 2:43 PM CS T Respiratory Rate 16 12/21/2017 10:46 AM CDT Oxygen Saturation 97% 11/14/2018 8:35 AM CDT Inhaled Oxygen Concentration - - Weight 73.3 kg (161 lb 9.6 oz) 03/10/2023 2:43 P M CENTER RECEPTIONIST Height 168 cm (5' 6.14) 11/14/2018 8:35 AM CDT Body Mass Index 25.97 11/14/2018 8:35 AM CDT Plan of Treatment Not on file Medical Devices Implanted Type Area Diamond Mounter Device Identifier Shelf Expiration Date Model / Serial / Lot Hip Implant-06/04/19 06 Implanted:06/03 (Quantity not on file) Hip Implant Right: Hip Conversions - Default Historical Implant Device Implanted:06/03 (Quantity not on file) Hip Implant Right: Hip Description:Body Location - Hip R. Device Status Text - Hip Imp. 2005 Cinthya Alvarado and revision Mirian 2009. Intrauterine Device-05/21/2010 Implanted:05/21 (Quantity not on file) Intrauterine Device Uterus Description:Mirena Procedures Procedure Name Priority Date/Time Associated Diagnosis Comments OUTSIDE MG MAMMOGRAM Routine 12/01/2022 10:45 AM CDT BASIC METABOLIC PANEL, S/P Routine 11/14/2018 9:18 AM CDT General Medical Examination Adult HCV AB SCRN W/REFLEX TO HCV PCR, S Routine 11/14/2018 9:18 AM CDT Screening Test Laboratory COLONOSCOPY Routine 10/07/2016 LIPID PANEL, S Routine 01/20/2016 10:52 AM CDT THINPREP SCREEN HPV REFLEX Routine 01/20/2016 10:30 AM CDT from Last 3 Months or Most Recently Relevant to Health Maintenance Results * MM clip placement LT-Outside Mammogram (12/01/2022 10:45 AM CDT) Narrative [facility] - 01/19/2023 3:39 PM CDT This order has been created and auto-finalized to support the import of outside images. If available, original interpretation can be found on the Media Tab in Chart Review, in Document Viewer, or as an image in QREADS. If a re-interpretation or overread is required please follow defined workflow. ?? Provider Not In System IMG BI PROCEDURES [facility] NA * HCV Ab Scrn w/Reflex to HCV PCR, Serum (11/14/2018 9:18 AM CDT) HCV Ab Screen, S Negative Negative 11/15/19 19 3:39 PM CDT Comment: Biotin has been identified by the process developer as a potential interfering substance. ??Higher concentrations of biotin may be found in multivitamins, hair/nail supplements, and workout supplements. ??If the result does not match clinical observations, repeat testing after patient refrains from the use of supplements for at least 12 hours. Blood (Blood, Venous) 11/14/2018 9:18 AM CDT 11/14/2018 2:53 PM CDT Narrative [facility] - 11/14/2018 3:39 PM CDT Specimen Information: Specimen ID: [id number] Specimen Type: Blood Specimen Collection Start Date: 11/14/2018 ??9:18 AM Specimen Received Date: 11/14/2018 ??2:53 PM Specimen ID: [id number] Specimen Type: Blood Specimen Collection Start Date: 11/14/2018 ??9:18 AM Specimen Received Date: 11/14/2018 ??2:53 PM Deejay Carranza M.D. LAB MICROBIOLOGY - BLOOD ORDERABLES Performing Organization Address City/[facility]/ZIP Co de Phone Number [facility] [address] [place] [address] * (ABNORMAL) Basic Metabolic Panel (11/14/2018 9:18 AM CDT) Potassium, S 4.4 3.6 - 5.2 mmol/L 11/14/2018 10:36 AM CDT Sodium, S 144 135 - 145 mmol/L 11/14/2018 10:36 AM CDT Chloride, S 106 98 - 107 mmol/L 11/14/2018 10:36 AM CDT Bicarbonate, S 25 22 - 29 mmol/L 11/14/2018 10:36 AM CDT Anion Gap 13 7 - 15 11/14/2018 10:36 AM CDT BUN (Blood Urea Nitrogen), S 14 6 - 21 mg/dL 11/14/2018 10:36 AM CDT Creatinine 0.57(L) 0.59 - 1.04 mg/dL 11/14/2018 10:36 AM CDT eGFR-Non Black/ >90 >=60 mL/min/BSA 11/14/2018 10:36 AM CDT Comment: ----ADDITIONAL INFORMATION---- Estimated GFR calculated using the 2009 CKD_EPI creatinine equation. eGFR-Black/Afri can Marshallese >90 >=60 mL/min/BSA 11/14/2018 10:36 AM CDT Comment: ----ADDITIONAL INFORMATION---- Estimated GFR calculated using the 2009 CKD_EPI creatinine equation. Calcium, Total, S 9.6 8.6 - 10.0 mg/dL 11/14/2018 10:36 AM CDT Glucose, S 87 70 - 140 mg/dL 11/14/2018 10:36 AM CDT Blood (Blood, Venous) 11/14/2018 9:18 AM CDT 11/14/2018 9:20 AM CDT Deejay Carranza M.D. LAB BLOOD ADD-ON Performing Organization Address City/State/[facility] Co de Phone Number [facility] [address] [place] [address], [facility] * (ABNORMAL) Colonoscopy (10/07/2016) EXT Colonoscopy Abnormal - See Scanned Report for Details Normal - See Scanned Report for Details, HIMS - Report Received and Scanned Comment:See notes for result details Historical Provider GI PROCEDURE ORDERAB LES * (ABNORMAL) Lipid Panel (01/20/2016 10:52 AM CDT) Cholesterol, Total 219(H) <=199 MGDL POWERCHART Comment: 2013 National Lipid Association recommendations for Total Cholesterol in adults ages 18 and up: Desirable <200 mg/dL Borderline high 200-239 mg/dL High 240 mg/dL 2014 National Lipid Association recommendations for Total Cholesterol in children ages 2 to 17. Acceptable <170 mg/dL Borderline High 170-199 mg/dL High 200 mg/dL HX HDL 70 >=50 MGDL POWERCHART Comment: 2014 National Lipid Association recommendations for HDL-C in adults ages 18 and up: Low <40 mg/dL (Men) Low <50 mg/dL (Women) 2014 National Lipid Association recommendations for HDL-C in children ages 2 to 17. Low <40 mg/dL Borderline Low 40-45 mg/dL Acceptable >45 mg/dL Triglycerides 134 <=149 MGDL POWERCHART Comment: 2014 National Lipid Association recommendations for Triglycerides in adults ages 18 and up: Normal <150 mg/dL Borderline High 150-199 mg/dL High 200-499 mg/dL Very High 500 mg/dL 2014 National Lipid Association recommendations for Triglycerides in children ages 2 to 9. Acceptable <75 mg/dL Borderline High 75-99 mg/dL High 100 mg/dL 2014 National Lipid Association recommendations for Triglycerides in children ages 10 to 17. Acceptable <90 mg/dL Borderline High 90-129 mg/dL High 130 mg/dL Trigs >400mg/dL: Triglycerides >400 mg/dL. Calculated LDL cholesterol is not valid. Non-HDL cholesterol may be used for risk assessment when triglycerides are >400mg/dL. Calculated LDL 122 <=129 MGDL POWERCHART Comment: 2014 National Lipid Association recommendations for LDL-C in adults ages 18 and up: Desirable <100 mg/dL Above desirable 100-129 mg/dL Borderline high 130-159 mg/dL High 160-189 mg/dL Very High 190 mg/dL 2014 National Lipid Association recommendations for LDL-C in children ages 2 to 17. Acceptable <110 mg/dL Borderline High 110-129mg/dL High 130 mg/dL LDL-C >190mg/dL: The markedly elevated LDL level is suggestive of a genetic condition such as familial hypercholesterolemia(FH) or familial defective apolipoprotein B-100 (FDB). Molecular genetic testing for FH and FDB is available through [facility] [employer]: FH/ADH Genetic Reflex Panel (test ADHP). Acquired (non-genetic) causes of markedly increased LDL cholesterol include cholestatic liver disease due to the presence of LpX. If a genetic form of hypercholesterolemia is suspected, family studies including biochemical testing for lipids (total cholesterol,triglycerides, LDL cholesterol and HDL cholesterol) are recommended. ??Please contact the laboratory at or the on-line test catalog at [email or web address] for information about how to order these tests or to speak with a genetic counselor. Further interpretation would require clinical information. Total Cholesterol/HDL Ratio 3 POWERCHART Blood 01/20/2016 10:5 2 AM CDT Yadi Koehler APRN, C.N.P. LAB BLOOD ADD-ON POWERCHART * Pathology ThinPrep Screen HPV Reflex (01/20/2016 10:30 AM CDT) [facility]Accession [facility] [id number] POWERCHART HXFinal Diagnosis-[place] See Comment POWERCHART Comment: A. ??ThinPrep Pap Test Screen (Cervical/Endocervical HPV >= 30 years old): Satisfactory for evaluation. Inadequate endocervical/transformation zone component Negative for intraepithelial lesion or malignancy. High Risk HPV testing results are NEGATIVE. See specific genotype results below. HPV with Genotyping, PCR, ThinPrep: HPV High Risk Type 16, PCR: ??NEGATIVE HPV High Risk Type 18, PCR: ??NEGATIVE HPV other High Risk types, PCR: ??NEGATIVE Other High Risk HPV types include: ??31, 33, 35, 39, 45, 51, 52, 56, 58, 59, 66, and 68. [facility] See Comment POWERCHART Comment: Report electronically signed by Edgard Rider, SCT(ASCP) 01/24/2016 10:58 Interpreted by: EVANGELISTA Ordoñez(ASCP) Cervix/Endocervix 01/20/2016 10:30 AM CDT Yadi Koehler APRN, C.N.P. LAB PAP P ATHDX ORDERABLES POWERCHART from Last 3 Months or Most Recently Relevant to Health Maintenance Care Teams Documentation Supervisor Relationship Specialty Start Date End Date Elsewhere, Pcp PCP - General Internal Medicine 03/02/22
--- OUTSIDE RECORDS SUMMARY | 2023-08-24 08:01 | XMS_ITS | Clinical Summary ---
Author Organization [facility] Address [address] [place] [id number] Care Team Providers Care Court Of Appeals Judge Name Role Phone Elsewhere, Pcp Primary Care Provider Unavailabl e Source Comments Patient records contain information from all sites at [facility]. For routine questions regarding patient records, call [phone] during business hours, M-F 8:00 AM - 5:00 PM Central Time. Record requests for emergency care only can be directed to [phone] at any time.[facility] Allergies Active Allergy Reactions Criticality [...] from 12/24/2022:Stage IB(pT3, pN0(sn), cM0, G2, ER+, OR+, HER2-, Oncotype DX score: 14) - Unsigned [...] Comments Blood Pressure 121/56 01/27/2023 10:48 AM MANAGER LEASING Pulse 71 01/27/2023 10:48 AM MANAGER LEASING Temperature 35.9 ??C (96.6 ??F) 03/10/2023 2:43 PM CS T Respiratory Rate 16 12/21/2017 10:46 AM CDT Oxygen Saturation 97% 11/14/2018 8:35 AM CDT Inhaled Oxygen Concentration - - Weight 73.3 kg (161 lb 9.6 oz) 03/10/2023 2:43 P M MANAGER LEASING Height 168 cm (5' 6.14) 11/14/2018 8:35 AM CDT Body Mass Index 25.97 11/14/2018 8:35 AM CDT Plan of Treatment Health Maintenance Due Date Last Done Comments CT Colonography 1963 Cologuard 1965 HIV Screening 1965 Lung Cancer Screening 1963 COVID-19 Vaccine (#1) 10/15/1968 Pneumococcal vaccine (0-64 years) (1 of 2 - PCV) 10/15/1969 Hepatitis B Vaccines (1 of 3 - 19+ 3-dose series) 10/15/1982 Zoster Vaccines (1 of 2) 10/15/1982 Cervical Cancer Screening 01/19/2019 01/20/2016, Lipid (Cholesterol) Screening 01/19/2021 01/20/2016 Colonoscopy 10/07/2021 10/07/2016 Colorectal Cancer Surveillance 10/07/2021 Fasting Glucose for Diabetes Screening 11/14/2021 11/14/2018, 01/20/2016 Influenza Vaccine (#1) 2022 Depression Screening (Annual PHQ-2) 03/22/2023 DTaP,Tdap,and Td Vaccines (2 - Td or Tdap) 03/02/2025 03/02/2015, 09/06/1997 Hepatitis C Screening Completed 11/14/2018 Mammogram Discontinued 12/01/2022, 08/2022, 11/17/2022, Additional history exists HPV Vaccines Aged Out No longer eligi ble based on patient's age to complete this topic Medical Devices Implanted Type Area Auto Damage Trainee Device Identifier Shelf Expiration Date Model / Serial / Lot Hip Implant-06/04/19 06 Implanted:06/03 (Quantity not on file) Hip Implant Right: Hip Conversions - Default Historical Implant Device Implanted:06/03 (Quantity not on file) Hip Implant Right: Hip Description:Body Location - Hip R. Device Status Text - Hip Imp. 2005 Cinthya Alvarado and revision Mirian Perea. Intrauterine Device-05/21/2010 Implanted:05/21 (Quantity not on file) [...] LT-Outside Mammogram (12/01/2022 10:45 AM CDT) Narrative [facility] - 01/19/2023 3:39 PM CDT This order has been created and auto-finalized to support the import of outside images. If available, original interpretation can be found on the Media Tab in Chart Review, in Document Viewer, or as an image in QREADS. If a re-interpretation or overread is required please follow defined workflow. ?? Provider Not In System IMG BI PROCEDURES IIKY NA * HCV Ab Scrn w/Reflex to HCV PCR, Serum (11/14/2018 9:18 AM CDT) HCV Ab Screen, S Negative Negative 11/15/19 19 3:39 PM CDT Comment: Biotin has been identified by the water safety teacher as a potential interfering substance. ??Higher concentrations of biotin may be found in multivitamins, hair/nail supplements, and workout supplements. ??If the result does not match clinical observations, repeat testing after patient refrains from the use of supplements for at least 12 hours. Blood (Blood, Venous) 11/14/2018 9:18 AM CDT 11/14/2018 2:53 PM CDT Narrative [facility] - 11/14/2018 3:39 PM CDT Specimen Information: Specimen ID: [id number] Specimen Type: Blood Specimen Collection Start Date: 11/14/2018 ??9:18 AM Specimen Received Date: 11/14/2018 ??2:53 PM Specimen ID: [id number] Specimen Type: Blood Specimen Collection Start Date: 11/14/2018 ??9:18 AM Specimen Received Date: 11/14/2018 ??2:53 PM Deejay Carranza M.D. LAB MICROBIOLOGY - BLOOD ORDERABLES [facility] [address] [place] [address] * (ABNORMAL) Basic Metabolic Panel (11/14/2018 9:18 [...] the 2009 CKD_EPI creatinine equation. eGFR-Black/Afri can Tanzanian >90 >=60 mL/min/BSA 11/14/2018 10:36 AM CDT Comment: ----ADDITIONAL INFORMATION---- Estimated GFR calculated using the 2009 CKD_EPI creatinine equation. Calcium, Total, S 9.6 8.6 - 10.0 mg/dL 11/14/2018 10:36 AM CDT Glucose, S 87 70 - 140 mg/dL 11/14/2018 10:36 AM CDT Blood (Blood, Venous) 11/14/2018 9:18 AM CDT 11/14/2018 9:20 AM CDT Deejay Carranza M.D. LAB BLOOD ADD-ON [facility] [address] * (ABNORMAL) Colonoscopy (10/07/2016) EXT Colonoscopy Abnormal - See Scanned Report for Details Normal - See Scanned Report for Details, HIMS - Report Received and Scanned Comment:See notes for result details Historical Provider GI PROCEDURE ORDERAB LES * (ABNORMAL) Lipid Panel (01/20/2016 10:52 AM CDT) Cholesterol, Total 219(H) <=199 MGDL POWERCHART Comment: 2014 National Lipid Association recommendations for Total [...] for FH and FDB is available through [facility] [employer]: FH/ADH Genetic Reflex Panel (test ADHP). Acquired (non-genetic) causes of markedly increased LDL cholesterol include cholestatic liver disease due to the presence of LpX. If a genetic form of hypercholesterolemia is suspected, family studies including biochemical testing for lipids (total cholesterol,triglycerides, LDL cholesterol and HDL cholesterol) are recommended. ??Please contact the laboratory at or the on-line test catalog at [employer] for information about how to order these tests or to speak with a genetic counselor. Further interpretation would require clinical information. Total Cholesterol/HDL Ratio 3 POWERCHART Blood 01/20/2016 10:5 2 AM CDT Yadi Koehler APRN, C.N.P. LAB BLOOD ADD-ON POWERCHART * Pathology ThinPrep Screen HPV Reflex (01/20/2016 10:30 AM CDT) HXAccession [facility] [id number] POWERCHART HXFinal Diagnosis-[facility] See Comment POWERCHART Comment: A. ??ThinPrep Pap [...] 52, 56, 58, 59, 66, and 68. [facility] See Comment POWERCHART Comment: Report electronically signed by Edgard Rider SCT(ASCP) 01/24/2016 10:58 Interpreted by: EVANGELISTA Ordoñez(ASCP) Cervix/Endocervix 01/20/2016 10:30 AM CDT Yadi Koehler APRN, C.N.P. LAB PAP P ATHDX ORDERABLES POWERCHART from Last 3 Months or Most Recently Relevant to Health Maintenance Care Teams Court Of Appeals Judge Relationship Specialty Start Date End Date Elsewhere, Pcp PCP - General Internal Medicine 03/02/22
--- OUTSIDE RECORDS SUMMARY | 2023-08-24 08:01 | XMS_ITS ---
Author Organization [facility] Address [address] [place] [address] Care Team Providers Care Blacking Wheel Tender Name Role Phone Unavailable Unavailable Unavailable Surgery Details Not on file Complications Check Surgery Details section. Procedure Estimated Blood Loss Check Surgery Details section. Procedure Findings Check Surgery Details section. Procedure Specimens Taken Check Surgery Details section.
--- OUTSIDE RECORDS SUMMARY | 2023-08-24 08:01 | XMS_ITS | Clinical Summary ---
Author Organization [facility] Address [address] [place] [address] Care Team Providers Care Neurology Technician Name Role Phone Inactive, Administrativel Primary Care Provider Source Comments If you need additional information that is not available on Care Everywhere, please contact our Medical Records Department during business hours (Wednesday - Wednesday, 8 am - 5 pm) at . During nonbusiness hours, please contact our Trauma and Emergency Center at .[facility] Medications * Medications may not be up to date as of this document. Always verify current medications with the patient. Medication Sig Dispensed Refills Start Date End Date Status Aleve 220 mg Tab Take 1 by mouth every 6 hours as needed for pain PRN 12/15/2004 Active Social History Tobacco Use Types Packs/Day Years Used Date Smoking Tobacco: Never Assessed Sex and Gender Information Value Date Recorded Sex Assigned at Not on file Gender Identity Not on file Sexual Orientation Not on file Plan of Treatment Health Maintenance Due Date Last Done Comments HEPATITIS C SCREENING 1965 DEPRESSION/ANXIETY PHQ4 1975 CERVICAL CANCER SCREENING 10/15/1981 LIPID SCREEN 10/15/1981 WELLNESS VISIT 10/15/1981 DTaP/Tdap/Td Vaccine (1 - Tdap) 10/15/1982 Hepatitis B Vaccine (1 of 3 - 19+ 3-dose series) 10/15/1982 PERTUSSIS 10/15/1982 MAMMOGRAM 2003 COLONOSCOPY 10/15/2008 DIABETES SCREENING 10/15/2008 SHINGLES VACCINE (SHINGRIX) (1 of 2) 10/15/2013 COVID-19 Vaccine (2022-2 4 season) 2022 INFLUENZA (Season Ended) 2023 HPV Vaccine Aged Out No longer eligi ble based on patient's age to complete this topic PNEUMOCOCCAL AGES 0-64 YEARS Aged Out No longer eligible based on patient's age to complete this topic POLIO (IPV) Vaccine Aged Out No longe r eligible based on patient's age to complete this topic Advance Directives For more information, please contact: [phone] Documents on File Type Date Recorded Patient Management Specialist Expl anation Power of Cuff Stitcher for Health Care 05/30/2005 12:00 AM Healthcare Agents on File Name Relationship Healthcare Agent Relationshi p Communication Issa Yun Primary Health Care Agent Mohit Koehler [facility] Health Care Agent Care Teams Neurology Technician Relationship Specialty Start Date End Date Inactive, Administrativel [address] [place] [address] PCP - General 02/10/15
--- NOTE | 2023-08-24 08:15 | CRLHL7_ITS ---
For Patients: As a result of the Cures Act, medical imaging exams and procedure reports are released immediately into your electronic medical record. You may view this report before your referring provider. If you have questions, please contact your health care provider. RIGHT CHEST WALL ULTRASOUND CLINICAL HISTORY: RIGHT chest wall lump. COMPARISON: MRI 12/07/2022. TECHNIQUE: Real-time ultrasound imaging of RIGHT chest wall with imaging documentation. Scanning was performed by both the technologist and the radiologist. FINDINGS: Postop changes RIGHT mastectomy. Linear scar tissue noted extending from the nipple area laterally. Beneath the skin in this area there is normal lobulated fat tissue without suspicious findings, corresponding to the areas of palpable concern. IMPRESSION: No suspicious findings. RECOMMENDATIONS: Clinical follow-up. Results and recommendations were discussed with the patient at the time of the exam. BI-RADS Category 2: Benign A lay language report of this examination will be provided to the patient. Dictated by Mohit Maharaj MD @ 08/24/2023 10:36:39 AM jj/Dictated by: Mohit Maharaj MD @ 08/24/2023 10:36:00 AM (Electronically Signed)
== END 2023-08-24 07:59 | disposition home or self-care (01) ==
PROVIDERS: PCP Nurse Practitioner Family; Visit Provider Physician Assistant
DX: R22.2 Localized swelling, mass and lump, trunk (principal)
CPT/HCPCS: 76642

== ENCOUNTER 2023-09-10 10:13 | Outpatient (CLI) | payer BC, SELFPAY | END 2023-09-10 10:14 | disposition home or self-care (01) | PROVIDERS: PCP Nurse Practitioner Family; Visit Provider Nurse Practitioner Family | DX: D64.9 Anemia, unspecified (principal); Z13.0 Encounter for screening for diseases of the blood and blood-forming organs and certain disorders involving the immune mechanism; F41.9 Anxiety disorder, unspecified; F32.A Depression, unspecified; G47.00 Insomnia, unspecified; R53.83 Other fatigue; Z82.49 Family history of ischemic heart disease and other diseases of the circulatory system; E78.5 Hyperlipidemia, unspecified | CPT/HCPCS: 82728; 83540; 83550; 85025 ==

== ENCOUNTER 2023-12-16 13:00 | Outpatient (RCR) | payer BC, SELFPAY | END 2024-02-01 23:59 | disposition home or self-care (01) | LOC: CCIC 13:00 | PROVIDERS: PCP Nurse Practitioner Family; Visit Provider Physician Assistant | DX: C50.912 Malignant neoplasm of unspecified site of left female breast (principal); Z17.0 Estrogen receptor positive status [ER+]; Z90.13 Acquired absence of bilateral breasts and nipples; L98.9 Disorder of the skin and subcutaneous tissue, unspecified; R22.2 Localized swelling, mass and lump, trunk; Z79.811 Long term (current) use of aromatase inhibitors | CPT/HCPCS: 99214; G0463 ==

== ENCOUNTER 2023-12-20 15:32 | Outpatient (CLI) | payer BC, SELFPAY ==
--- OUTSIDE RECORDS SUMMARY | 2023-12-20 15:36 | XMS_ITS | Clinical Summary ---
Author Organization [facility] Address [address] [place] [address] Care Team Providers Care Director It Name Role Phone Elsewhere, Pcp Primary Care Provider Unavailabl e Source Comments Patient records contain information from all sites at [facility]. For routine questions regarding patient records, call [phone] during business hours, M-F 8:00 AM - 5:00 PM Central Time. Record requests for emergency care only can be directed to [phone] at any time.[facility] Allergies Active Allergy Reactions Criticality Noted Date [...] from 12/24/2022:Stage IB(pT3, pN0(sn), cM0, G2, ER+, MO+, HER2-, Oncotype DX score: 14) - Unsigned Enthesopathy Hip 06/17/2013 Overview (07/27/2017): Enthesopathy of hip region Temporomandibular Joint Disorder 06/17/2013 Overview (07/27/2017): Temporomandibular joint disorders, unspecified Depression Anxiety 07/01/2007 Resolved Problems Problem Noted Date Diagnosed Date Resolved Date Amputation Finger Status Post Left 03/25/2015 11/14/2018 Tear Knee Meniscus Current Initial 10/21/2009 11/14/2018 Sprain Knee Anterior Cruciat e Ligament Initial 10/03/2009 11/14/2018 Tear of lateral cartilage or meniscus of knee, current 10/03/2009 07/27/2017 Arthroplasty Total Hip Repla cement Status Post 10/01/2009 11/14/2018 Overview (07/27/2017): Right side 2005. revision 2007. dr. Cornelia Fraga Other Ovarian Cyst Left Side 01/04/2009 07/27/2017 Dermatitis Photocontact 08/23/200710/21 Dysthymia 07/01/2007 11/14/2018 Overview (08/11/2016): Depression Anxiety Hypothyroidism 07/01/2007 11/14/2018 Overview (07/27/2017): not on replacement, unaware of diagnosis Immunizations [...] Comments Blood Pressure 121/56 01/27/2023 10:48 AM STOPPING BUILDER Pulse 71 01/27/2023 10:48 AM STOPPING BUILDER Temperature 35.9 ??C (96.6 ??F) 03/10/2023 2:43 PM CS T Respiratory Rate 16 12/21/2017 10:46 AM CDT Oxygen Saturation 97% 11/14/2018 8:35 AM CDT Inhaled Oxygen Concentration - - Weight 73.3 kg (161 lb 9.6 oz) 03/10/2023 2:43 P M STOPPING BUILDER Height 168 cm (5' 6.14) 11/14/2018 8:35 AM CDT Body Mass Index 25.97 11/14/2018 8:35 AM CDT Plan of Treatment Health Maintenance Due Date Last Done Comments CT Colonography 1963 Cologuard 1965 HIV Screening 1965 Lung Cancer Screening 1963 COVID-19 Vaccine (#1) 10/15/1968 Pneumococcal vaccine (0-64 years) (1 of 2 - PCV) 10/15/1969 Zoster Vaccines (1 of 2) 10/15/1982 Cervical Cancer Screening 01/19/2019 01/20/2016, Lipid (Cholesterol) Screening 01/19/2021 01/20/2016 Colonoscopy 10/07/2021 10/07/2016 Colorectal Cancer Surveillance 10/07/2021 Fasting Glucose for Diabetes Screening 11/14/2021 11/14/2018, 01/20/2016 Depression Screening (Annual PHQ-2) 03/22/2023 Influenza Vaccine (#1) 2023 DTaP,Tdap,and Td Vaccines (2 - Td or Tdap) 03/02/2025 03/02/2015, 09/06/1997 Hepatitis C Screening Completed 11/14/2018 Mammogram Discontinued 12/01/2022, 0908/2022, 11/17/2022, Additional history exists HPV Vaccines Aged Out No longer eligi ble based on patient's age to complete this topic Hepatitis B Vaccines Aged Out No long er eligible based on patient's age to complete this topic Medical Devices Implanted Type Area Lab Rep Device Identifier Shelf Expiration Date Model / Serial / Lot Hip Implant-06/04/19 06 Implanted:06/03 (Quantity not on file) Hip Implant Right: Hip Conversions - Default Historical Implant Device Implanted:06/03 (Quantity not on file) Hip Implant Right: Hip Description:Body Location - Hip R. Device Status Text - Hip Imp. 2006 Cinthya Alvarado and revision Mirian Perea. Intrauterine [...] Provider Not In System IMG BI PROCEDURES [facility] NA * HCV Ab Scrn w/Reflex to HCV PCR, Serum (11/14/2018 9:18 AM CDT) HCV Ab Screen, S Negative Negative 11/15/19 19 3:39 PM CDT Comment: Biotin has been identified by the compliance spec as a potential interfering substance. ??Higher concentrations of biotin may be found in multivitamins, hair/nail supplements, and workout supplements. ??If the result does not match clinical observations, repeat testing after patient refrains from the use of supplements for at least 12 hours. Blood (Blood, Venous) 11/14/2018 9:18 AM CDT 11/14/2018 2:53 PM CDT Narrative [facility] - 11/14/2018 3:39 PM CDT Specimen Information: Specimen ID: [id number] Specimen Type: Blood Specimen Collection Start Date: 11/14/2018 ??9:18 AM Specimen Received Date: 11/14/2018 ??2:53 PM Specimen ID: [id number] Specimen Type: Blood Specimen Collection Start Date: 11/14/2018 ??9:18 AM Specimen Received Date: 11/14/2018 ??2:53 PM Deejay Carranza M.D. LAB MICROBIOLOGY - BLOOD ORDERABLES [facility] [address] [place] [address] * (ABNORMAL) Basic Metabolic Panel (11/14/2018 9:18 [...] the 2009 CKD_EPI creatinine equation. eGFR-Black/Afri can Djiboutian >90 >=60 mL/min/BSA 11/14/2018 10:36 AM CDT Comment: ----ADDITIONAL INFORMATION---- Estimated GFR calculated using the 2009 CKD_EPI creatinine equation. Calcium, Total, S 9.6 8.6 - 10.0 mg/dL 11/14/2018 10:36 AM CDT Glucose, S 87 70 - 140 mg/dL 11/14/2018 10:36 AM CDT Blood (Blood, Venous) 11/14/2018 9:18 AM CDT 11/14/2018 9:20 AM CDT Deejay Carranza M.D. LAB BLOOD ADD-ON [facility] [address] [place] [address], [facility] * (ABNORMAL) Colonoscopy (10/07/2016) EXT Colonoscopy Abnormal [...] for FH and FDB is available through [place] [employer]: FH/ADH Genetic Reflex Panel (test ADHP). Acquired (non-genetic) causes of markedly increased LDL cholesterol include cholestatic liver disease due to the presence of LpX. If a genetic form of hypercholesterolemia is suspected, family studies including biochemical testing for lipids (total cholesterol,triglycerides, LDL cholesterol and HDL cholesterol) are recommended. ??Please contact the laboratory at or the on-line test catalog at [facility] for information about how to order these tests or to speak with a genetic counselor. Further interpretation would require clinical information. Total Cholesterol/HDL Ratio 3 POWERCHART Blood 01/20/2016 10:5 2 AM CDT Yadi Koehler APRN, C.N.P. LAB BLOOD ADD-ON POWERCHART * Pathology ThinPrep Screen HPV Reflex (01/20/2016 10:30 AM CDT) HXAccession [facility] [id number] POWERCHART HXFinal Diagnosis-[place] See Comment POWERCHART Comment: A. ??ThinPrep Pap [...] 52, 56, 58, 59, 66, and 68. [facility] See Comment POWERCHART Comment: Report electronically signed by KING Cisneros(ASCP) 01/24/2016 10:58 Interpreted by: EVANGELISTA Ordoñez(ASCP) Cervix/Endocervix 01/20/2016 10:30 AM CDT Yadi Koehler APRN, C.N.P. LAB PAP P ATHDX ORDERABLES POWERCHART from Last 3 Months or Most Recently Relevant to Health Maintenance Care Teams Director It Relationship Specialty Start Date End Date Elsewhere, Pcp PCP - General Internal Medicine 03/02/22
--- OUTSIDE RECORDS SUMMARY | 2023-12-20 15:37 | XMS_ITS ---
Author Organization [facility] Address [address] [place] [address] Care Team Providers Care Supervisor Wet Pour Name Role Phone Unavailable Unavailable Unavailable Surgery Details Not on file Complications Check Surgery Details section. Procedure Estimated Blood Loss Check Surgery Details section. Procedure Findings Check Surgery Details section. Procedure Specimens Taken Check Surgery Details section.
--- OUTSIDE RECORDS SUMMARY | 2023-12-20 15:37 | XMS_ITS ---
Author Organization [facility] Address [address] [place] [address] Care Team Providers Care Heel Blacker Name Role Phone Elsewhere, Pcp Primary Care Provider Unavailabl e Active Problems Problem Noted Date Diagnosed Date Malignant Neoplasm Of Breast Lower Outer Quadrant Female Left 01/21/2023 Cancer Staging:Pathologic stage from 12/24/2022:Stage IB(pT3, pN0(sn), cM0, G2, ER+, UT+, HER2-, Oncotype DX score: 14) - Unsigned Enthesopathy Hip 06/17/2013 Overview (07/27/2017): Enthesopathy of hip region Temporomandibular Joint Disorder 06/17/2013 Overview (07/27/2017): Temporomandibular joint disorders, unspecified Depression Anxiety 07/01/2007 Current Oncology Plans No current plan information found. Past Plans No past plan information found. Radiation Treatments * Plan Last Treated On Elapsed Days Fractions Treated Prescribed Fraction Dose Prescribed Total Dose [id number] 03/12/2023 18 5 of 5 320 cGy 1,600 cG y [id number] 03/05/2023 11 10 of 10 320 cGy 3,200 cGy Reference Point Last Treated On Elapsed Days Session Dose Total Dose [id number] 03/12/2023 18 320 cGy 4,800 cGy Resolved [...]
--- OUTSIDE RECORDS SUMMARY | 2023-12-20 15:37 | XMS_ITS | Referral Summary ---
Author Organization [facility] Address [address] [place] [address] Care Team Providers Care Paste Plant Supervisor Name Role Phone Elsewhere, Pcp Primary Care Provider Unavailabl e Source Comments Patient records contain information from all sites at [facility]. For routine questions regarding patient records, call [phone] during business hours, M-F 8:00 AM - 5:00 PM Central Time. Record requests for emergency care only can be directed to [phone] at any time.[facility] Allergies Active Allergy Reactions Criticality Noted Date [...] Blood Pressure 121/56 01/27/2023 10:48 AM MANAGER RELIABILITY Pulse 71 01/27/2023 10:48 AM MANAGER RELIABILITY Temperature 35.9 ??C (96.6 ??F) 03/10/2023 2:43 PM CS T Respiratory Rate 16 12/21/2017 10:46 AM CDT Oxygen Saturation 97% 11/14/2018 8:35 AM CDT Inhaled Oxygen Concentration - - Weight 73.3 kg (161 lb 9.6 oz) 03/10/2023 2:43 P M MANAGER RELIABILITY Height 168 cm (5' 6.14) 11/14/2018 8:35 AM CDT Body Mass Index 25.97 11/14/2018 8:35 AM CDT Plan of Treatment Not on file Medical Devices Implanted Type Area Cruise Staff Member Device Identifier Shelf Expiration Date Model / Serial / Lot Hip Implant-06/04/19 06 Implanted:06/03 (Quantity not on file) Hip Implant Right: Hip Conversions - Default Historical Implant Device Implanted:06/03 (Quantity not on file) Hip Implant Right: Hip Description:Body Location - Hip R. Device Status Text - Hip Imp. 2005 Cinthya Alvarado and revision Mirian 2008. Intrauterine Device-05/21/2010 Implanted:05/21 (Quantity not on file) [...] Provider Not In System IMG BI PROCEDURES Performing Organization Address City/[facility]/ZIP Co de Phone Number [facility] NA * HCV Ab Scrn w/Reflex to HCV PCR, Serum (11/14/2018 9:18 AM CDT) HCV Ab Screen, S Negative Negative 11/15/19 19 3:39 PM CDT Comment: Biotin has been identified by the hydraulic elevator constructor as a potential interfering substance. ??Higher concentrations of biotin may be found in multivitamins, hair/nail supplements, and workout supplements. ??If the result does not match clinical observations, repeat testing after patient refrains from the use of supplements for at least 12 hours. Blood (Blood, Venous) 11/14/2018 9:18 AM CDT 11/14/2018 2:53 PM CDT Narrative [facility] - 11/14/2018 3:39 PM CDT Specimen Information: Specimen ID: [id number] Specimen Type: Blood Specimen Collection Start Date: 11/14/2018 ??9:18 AM Specimen Received Date: 11/14/2018 ??2:53 PM Specimen ID: [id number] Specimen Type: Blood Specimen Collection Start Date: 11/14/2018 ??9:18 AM Specimen Received Date: 11/14/2018 ??2:53 PM Deejay Carranza M.D. LAB MICROBIOLOGY - BLOOD ORDERABLES Performing Organization Address [facility] Co de Phone Number [facility] [address] [place] [address] * (ABNORMAL) Basic Metabolic Panel (11/14/2018 9:18 [...] the 2009 CKD_EPI creatinine equation. eGFR-Black/Afri can Luxembourger >90 >=60 mL/min/BSA 11/14/2018 10:36 AM CDT Comment: ----ADDITIONAL INFORMATION---- Estimated GFR calculated using the 2009 CKD_EPI creatinine equation. Calcium, Total, S 9.6 8.6 - 10.0 mg/dL 11/14/2018 10:36 AM CDT Glucose, S 87 70 - 140 mg/dL 11/14/2018 10:36 AM CDT Blood (Blood, Venous) 11/14/2018 9:18 AM CDT 11/14/2018 9:20 AM CDT Deejay Carranza M.D. LAB BLOOD ADD-ON Performing Organization Address City/State/[facility] Co de Phone Number [facility] [address] [place] [address], [facility] * (ABNORMAL) Colonoscopy (10/07/2016) EXT Colonoscopy [...] for FH and FDB is available through [facility] [employer]: FH/ADH Genetic Reflex Panel (test ADHP). Acquired (non-genetic) causes of markedly increased LDL cholesterol include cholestatic liver disease due to the presence of LpX. If a genetic form of hypercholesterolemia is suspected, family studies including biochemical testing for lipids (total cholesterol,triglycerides, LDL cholesterol and HDL cholesterol) are recommended. ??Please contact the laboratory at or the on-line test catalog at [facility] for information about how to order these tests or to speak with a genetic counselor. Further interpretation would require clinical information. Total Cholesterol/HDL Ratio 3 POWERCHART Blood 01/20/2016 10:5 2 AM CDT Yadi Koehler APRN, C.N.P. LAB BLOOD ADD-ON POWERCHART * Pathology ThinPrep Screen HPV Reflex (01/20/2016 10:30 AM CDT) HXAccession [facility] [id number] POWERCHART HXFinal Diagnosis[facility] See Comment POWERCHART Comment: A. ??ThinPrep Pap [...] 52, 56, 58, 59, 66, and 68. [facility] See Comment POWERCHART Comment: Report electronically signed by KING Cisneros(ASCP) 01/24/2016 10:58 Interpreted by: EVANGELISTA Ordoñez(ASCP) Cervix/Endocervix 01/20/2016 10:30 AM CDT Yadi Koehler APRN, C.N.P. LAB PAP P ATHDX ORDERABLES POWERCHART from Last 3 Months or Most Recently Relevant to Health Maintenance Care Teams Paste Plant Supervisor Relationship Specialty Start Date End Date Elsewhere, Pcp PCP - General Internal Medicine 03/02/22
--- OUTSIDE RECORDS SUMMARY | 2023-12-20 15:37 | XMS_ITS | Clinical Summary ---
Author Organization [facility] Address [address] [place] [address] Care Team Providers Care Senior Gis Analyst Name Role Phone Inactive, Administrativel Primary Care Provider Source Comments If you need additional information that is not available on Care Everywhere, please contact our Medical Records Department during business hours (Wednesday - Wednesday, 8 am - 5 pm) at . During nonbusiness hours, please contact our Trauma and Emergency Center at .[facility] Medications * Medications may not be up [...] 10/15/1981 DTaP/Tdap/Td Vaccine (1 - Tdap) 10/15/1982 PERTUSSIS 10/15/1982 MAMMOGRAM 2003 COLONOSCOPY 10/15/2008 DIABETES SCREENING 10/15/2008 SHINGLES VACCINE (SHINGRIX) (1 of 2) 10/15/2013 COVID-19 Vaccine (2023-2 5 season) 2023 Influenza Vaccine (#1) 2023 RSV Vaccine (1 - 1-dose 75+ series) 10/15/2038 HPV Vaccine Aged Out No longer eligi ble based on patient's age to complete this topic Hepatitis B Vaccine Aged Out No longe r eligible based on patient's age to complete this topic PNEUMOCOCCAL AGES 0-64 YEARS Aged Out No longer eligible based on patient's age to complete this topic POLIO (IPV) Vaccine Aged Out No longe r eligible based on patient's age to complete this topic Advance Directives For more information, please contact: [phone] Documents on File Type Date Recorded 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
== END 2023-12-20 15:33 | disposition home or self-care (01) ==
PROVIDERS: PCP Nurse Practitioner Family; Visit Provider Nurse Practitioner Family
DX: E78.5 Hyperlipidemia, unspecified (principal); D64.9 Anemia, unspecified
CPT/HCPCS: 80053; 85025

== ENCOUNTER 2023-12-30 11:05 | Day surgery (SDC) | payer BC, SELFPAY ==
[2023-12-30] VITALS (24 sets, daily range): BP systolic 104–130; BP diastolic 55–93; PULSE 55–74; RESP 12–18; TEMP 36–37.2; O2SAT 93–97; BMI 25.1
--- OUTSIDE RECORDS SUMMARY | 2023-12-30 11:08 | XMS_ITS ---
Author Organization [facility] Address [address] [place] [address] Care Team Providers Care Cloth Hand Name Role Phone Unavailable Unavailable Unavailable Surgery Details Not on file Complications Check Surgery Details section. Procedure Estimated Blood Loss Check Surgery Details section. Procedure Findings Check Surgery Details section. Procedure Specimens Taken Check Surgery Details section.
--- OUTSIDE RECORDS SUMMARY | 2023-12-30 11:08 | XMS_ITS ---
Author Organization [facility] Address [address] [place] [address] Care Team Providers Care Cleaning Supervisor Name Role Phone Elsewhere, Pcp Primary Care Provider Unavailabl e Active Problems Problem Noted Date Diagnosed Date Malignant Neoplasm Of Breast Lower Outer Quadrant Female Left 01/21/2023 Cancer Staging:Pathologic stage from 12/24/2022:Stage IB(pT3, pN0(sn), cM0, G2, ER+, MA+, HER2-, Oncotype DX score: 14) - Unsigned Enthesopathy Hip 06/17/2013 Overview (07/27/2017): Enthesopathy of hip region Temporomandibular Joint Disorder 06/17/2013 Overview (07/27/2017): Temporomandibular joint disorders, unspecified Depression Anxiety 07/01/2007 Current Oncology Plans No current plan information found. Past Plans No past plan information found. Radiation Treatments * Plan Last Treated On Elapsed Days Fractions Treated Prescribed Fraction Dose Prescribed Total Dose [id number] 03/12/2023 18 5 of 5 320 cGy 1,600 cG y [id number] 03/05/2023 11 10 of 10 320 cGy 3,200 cGy Reference Point Last Treated On Elapsed Days Session Dose Total Dose [id number] 03/12/2023 18 320 cGy 4,800 cGy Resolved [...]
--- OUTSIDE RECORDS SUMMARY | 2023-12-30 11:08 | XMS_ITS | Referral Summary ---
Author Organization [facility] Address [address] [place] [address] Care Team Providers Care Investigator Fraud Name Role Phone Elsewhere, Pcp Primary Care Provider Unavailabl e Source Comments Patient records contain information from all sites at [facility]. For routine questions regarding patient records, call [phone] during business hours, M-F 8:00 AM - 5:00 PM Central Time. Record requests for emergency care only can be directed to [phone] at any time.[facility] Allergies Active Allergy Reactions Criticality Noted [...] Comments Blood Pressure 121/56 01/27/2023 10:48 AM ECOMMERCE MARKETING MANAGER Pulse 71 01/27/2023 10:48 AM ECOMMERCE MARKETING MANAGER Temperature 35.9 ??C (96.6 ??F) 03/10/2023 2:43 PM CS T Respiratory Rate 16 12/21/2017 10:46 AM CDT Oxygen Saturation 97% 11/14/2018 8:35 AM CDT Inhaled Oxygen Concentration - - Weight 73.3 kg (161 lb 9.6 oz) 03/10/2023 2:43 P M ECOMMERCE MARKETING MANAGER Height 168 cm (5' 6.14) 11/14/2018 8:35 AM CDT Body Mass Index 25.97 11/14/2018 8:35 AM CDT Plan of Treatment Not on file Medical Devices Implanted Type Area Creative Manager Device Identifier Shelf Expiration Date Model / [...] System IMG BI PROCEDURES Performing Organization Address City/[facility]/ZIP Co de Phone Number [facility] NA * HCV Ab Scrn w/Reflex to HCV PCR, Serum (11/14/2018 9:18 AM CDT) HCV Ab Screen, S Negative Negative 11/15/19 19 3:39 PM CDT Comment: Biotin has been identified by the sausage meat trimmer as a potential interfering substance. ??Higher concentrations of biotin may be found in multivitamins, hair/nail supplements, and workout supplements. ??If the result does not match clinical observations, repeat testing after patient refrains from the use of supplements for at least 12 hours. Blood (Blood, Venous) 11/14/2018 9:18 AM CDT 11/14/2018 2:53 PM CDT Narrative [facility] - 11/14/2018 3:39 PM CDT Specimen Information: Specimen ID: [id number] Specimen Type: Blood Specimen Collection Start Date: 11/14/2018 ??9:18 AM Specimen Received Date: 11/14/2018 ??2:53 PM Specimen ID: [id number] Specimen Type: Blood Specimen Collection Start Date: 11/14/2018 ??9:18 AM Specimen Received Date: 11/14/2018 ??2:53 PM Deejay Carranza M.D. LAB MICROBIOLOGY - BLOOD ORDERABLES Performing Organization Address [facility] Co de Phone Number [facility] [address] [place] [address] * (ABNORMAL) Basic Metabolic Panel (11/14/2018 9:18 [...] the 2009 CKD_EPI creatinine equation. eGFR-Black/Afri can Samoan >90 >=60 mL/min/BSA 11/14/2018 10:36 AM CDT Comment: ----ADDITIONAL INFORMATION---- Estimated GFR calculated using the 2009 CKD_EPI creatinine equation. Calcium, Total, S 9.6 8.6 - 10.0 mg/dL 11/14/2018 10:36 AM CDT Glucose, S 87 70 - 140 mg/dL 11/14/2018 10:36 AM CDT Blood (Blood, Venous) 11/14/2018 9:18 AM CDT 11/14/2018 9:20 AM CDT Deejay Carranza M.D. LAB BLOOD ADD-ON Performing Organization Address City/State/[facility] Co de Phone Number [facility] [address] [place] [address], [facility] * (ABNORMAL) Colonoscopy (10/07/2016) EXT Colonoscopy Abnormal [...] FH and FDB is available through [facility] [employer]: FH/ADH Genetic Reflex Panel (test ADHP). Acquired (non-genetic) causes of markedly increased LDL cholesterol include cholestatic liver disease due to the presence of LpX. If a genetic form of hypercholesterolemia is suspected, family studies including biochemical testing for lipids (total cholesterol,triglycerides, LDL cholesterol and HDL cholesterol) are recommended. ??Please contact the laboratory at or the on-line test catalog at [facility] for information about how to order these tests or to speak with a genetic counselor. Further interpretation would require clinical information. Total Cholesterol/HDL Ratio 3 POWERCHART Blood 01/20/2016 10:5 2 AM CDT Yadi Koehler APRN, C.N.P. LAB BLOOD ADD-ON POWERCHART * Pathology ThinPrep Screen HPV Reflex (01/20/2016 10:30 AM CDT) HXAccession [facility] [id number] POWERCHART HXFinal Diagnosis-[place] See Comment POWERCHART Comment: A. ??ThinPrep Pap [...] 52, 56, 58, 59, 66, and 68. [facility] See Comment POWERCHART Comment: Report electronically signed by KING Cisneros(ASCP) 01/24/2016 10:58 Interpreted by: EVANGELISTA Ordoñez(ASCP) Cervix/Endocervix 01/20/2016 10:30 AM CDT Yadi Koehler APRN, C.N.P. LAB PAP P ATHDX ORDERABLES POWERCHART from Last 3 Months or Most Recently Relevant to Health Maintenance Care Teams Investigator Fraud Relationship Specialty Start Date End Date Elsewhere, Pcp PCP - General Internal Medicine 03/02/22
--- OUTSIDE RECORDS SUMMARY | 2023-12-30 11:08 | XMS_ITS | Clinical Summary ---
Author Organization [facility] Address [address] [place] [address] Care Team Providers Care Telescope Repairer Name Role Phone Inactive, Administrativel Primary Care Provider Source Comments If you need additional information that is not available on Care Everywhere, please contact our Medical Records Department during business hours (Wednesday - Wednesday, 8 am - 5 pm) at . 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
--- OUTSIDE RECORDS SUMMARY | 2023-12-30 11:08 | XMS_ITS | Clinical Summary ---
Author Organization [facility] Address [address] [place] [id number] Care Team Providers Care Degreasing Solution Mixer Name Role Phone Elsewhere, Pcp Primary Care Provider Unavailabl e Source Comments Patient records contain information from all sites at [facility]. For routine questions regarding patient records, call [phone] during business hours, M-F 8:00 AM - 5:00 PM Central Time. Record requests for emergency care only can be directed to [phone] at any time.[facility] Allergies Active Allergy Reactions Criticality Noted [...] from 12/24/2022:Stage IB(pT3, pN0(sn), cM0, G2, ER+, GA+, HER2-, Oncotype DX score: 14) - Unsigned [...] Comments Blood Pressure 121/56 01/27/2023 10:48 AM HOUSE SUPERVISOR Pulse 71 01/27/2023 10:48 AM HOUSE SUPERVISOR Temperature 35.9 ??C (96.6 ??F) 03/10/2023 2:43 PM CS T Respiratory Rate 16 12/21/2017 10:46 AM CDT Oxygen Saturation 97% 11/14/2018 8:35 AM CDT Inhaled Oxygen Concentration - - Weight 73.3 kg (161 lb 9.6 oz) 03/10/2023 2:43 P M HOUSE SUPERVISOR Height 168 cm (5' 6.14) 11/14/2018 8:35 [...] this topic Medical Devices Implanted Type Area Hadoop Application Developer Device Identifier Shelf Expiration Date Model / [...] Provider Not In System IMG BI PROCEDURES [facility] NA * HCV Ab Scrn w/Reflex to HCV PCR, Serum (11/14/2018 9:18 AM CDT) HCV Ab Screen, S Negative Negative 11/15/19 19 3:39 PM CDT Comment: Biotin has been identified by the supervisor real estate office as a potential interfering substance. ??Higher concentrations of biotin may be found in multivitamins, hair/nail supplements, and workout supplements. ??If the result does not match clinical observations, repeat testing after patient refrains from the use of supplements for at least 12 hours. Blood (Blood, Venous) 11/14/2018 9:18 AM CDT 11/14/2018 2:53 PM CDT Narrative [facility] - 11/14/2018 3:39 PM CDT Specimen Information: Specimen ID: [id number] Specimen Type: Blood Specimen Collection Start Date: 11/14/2018 ??9:18 AM Specimen Received Date: 11/14/2018 ??2:53 PM Specimen ID: [id number] Specimen Type: Blood Specimen Collection Start Date: 11/14/2018 ??9:18 AM Specimen Received Date: 11/14/2018 ??2:53 PM Deejay Carranza M.D. LAB MICROBIOLOGY - BLOOD ORDERABLES [facility] [address] [place] [address] * (ABNORMAL) Basic Metabolic Panel (11/14/2018 9:18 [...] the 2009 CKD_EPI creatinine equation. eGFR-Black/Afri can Kuwaiti >90 >=60 mL/min/BSA 11/14/2018 10:36 AM CDT Comment: ----ADDITIONAL INFORMATION---- Estimated GFR calculated using the 2009 CKD_EPI creatinine equation. Calcium, Total, S 9.6 8.6 - 10.0 mg/dL 11/14/2018 10:36 AM CDT Glucose, S 87 70 - 140 mg/dL 11/14/2018 10:36 AM CDT Blood (Blood, Venous) 11/14/2018 9:18 AM CDT 11/14/2018 9:20 AM CDT Deejay Carranza M.D. LAB BLOOD ADD-ON [facility] [address] [place] [address], [facility] * (ABNORMAL) Colonoscopy (10/07/2016) [...] for FH and FDB is available through [place] [facility]: FH/ADH Genetic Reflex Panel (test ADHP). Acquired (non-genetic) causes of markedly increased LDL cholesterol include cholestatic liver disease due to the presence of LpX. If a genetic form of hypercholesterolemia is suspected, family studies including biochemical testing for lipids (total cholesterol,triglycerides, LDL cholesterol and HDL cholesterol) are recommended. ??Please contact the laboratory at or the on-line test catalog at [employer] for information about how to order these tests or to speak with a genetic counselor. Further interpretation would require clinical information. Total Cholesterol/HDL Ratio 3 POWERCHART Blood 01/20/2016 10:5 2 AM CDT Yadi Koehler APRN, C.N.P. LAB BLOOD ADD-ON POWERCHART * Pathology ThinPrep Screen HPV Reflex (01/20/2016 10:30 AM CDT) HXAccession Nbr-[place] [id number] POWERCHART HXFinal Diagnosis-[place] See Comment POWERCHART Comment: A. ??ThinPrep Pap [...] 52, 56, 58, 59, 66, and 68. [facility] See Comment POWERCHART Comment: Report electronically signed by KING Cisneros(ASCP) 01/24/2016 10:58 Interpreted by: EVANGELISTA Ordoñez(ASCP) Cervix/Endocervix 01/20/2016 10:30 AM CDT Yadi Koehler APRN, C.N.P. LAB PAP P ATHDX ORDERABLES POWERCHART from Last 3 Months or Most Recently Relevant to Health Maintenance Care Teams Degreasing Solution Mixer Relationship Specialty Start Date End Date Elsewhere, Pcp PCP - General Internal Medicine 03/02/22
[2023-12-30] MEDS: LACTATED RINGERS 1000 ML 1,000 ML 100 ML IV (11:25)
[2023-12-30] MEDS: ACETAMINOPHEN 500 MG TABLET 1000 MG PO ×3 (11:25→23:45)
[2023-12-30] MEDS: OXYCODONE (CR) 10 MG TAB.ER.12H PO (12:02)
[2023-12-30] MEDS: CELECOXIB 200 MG CAPSULE PO (12:02)
[2023-12-30] MEDS: SODIUM CHLORIDE 0.9 % (FLUSH) 10 ML SYRINGE IVF (12:02)
--- NOTE | 2023-12-30 12:30 | CRLHL7_ITS ---
For Patients: As a result of the Cures Act, medical imaging exams and procedure reports are released immediately into your electronic medical record. You may view this report before your referring provider. If you have questions, please contact your health care provider. Indication: Hip replacement surgery Technique: AP hip fluoroscopic images. Fluoroscopy time 41.2 seconds. Findings/Impression: Hardware from a left total hip arthroplasty is in satisfactory position. Dictated by Mohit Maharaj MD @ 12/31/2023 11:00:27 AM (Electronically Signed)
[2023-12-30] MEDS: fentaNYL 100 MCG/2 ML inj IVP (12:33)
[2023-12-30] MEDS: MIDAZOLAM HCL 1 MG/ML inj IVP (12:33)
--- NOTE | 2023-12-30 12:37 | SUR.PREOP ---
TIME?OUT:?1233 PT/RN/MDA?VERIFICATION?OF?SURGICAL?SITE Left Hip,?PROCEDURE Nerve Block,?AND?CONSENT OBTAINED?PRIOR?TO?INVASIVE?PROCEDURE.
--- NOTE | 2023-12-30 12:55 | W.PM.NB ---
Nerve Block Nerve Block Time Seen by Provider: 12:35 Date Seen: 12/30/23 Type of block requested by surgeon for post-operative analgesia: CECILIA/LFCN Side: left Time out performed: Yes Verification of patient name: Yes Verification of date of : Yes Site marking: site marked Name of person performing procedure: Jose Continuous monitoring Was continuous monitoring of O2 sat, B/P, equipment superintendent, recorded every 15 minutes?: Yes Procedure Checklist: sterile prep, needles and gloves Ultrasound guided. Images saved: Yes Medications given in 5ml increments after negative aspiration: Ropivicaine %: 0.5 mL: 30 Needle gauge: 20 Precedex (mcg): 25 Patient tolerated procedure well: Yes Additional comments: Needle noted below psoas tendon needle noted adjacent to LFCN Block Charges Block Charge (with Pro Fee): Other Periph Nerve Block Use of Ultrasound Machine for Block: Yes- US Guidance/pain block
--- NOTE | 2023-12-30 12:56 | W.ANESCHARGE ---
Anesthesia Charges Start Date/Time Anesthesia Start Date: 12/30/23 Anesthesia Start Time: 13:13 Stop Date/Time Anesthesia Stop Date: 12/30/23 Anesthesia Stop Time: 15:53
--- NOTE | 2023-12-30 14:59 | CRLHL7_ITS ---
For Patients: As a result of the Cures Act, medical imaging exams and procedure reports are released immediately into your electronic medical record. You may view this report before your referring provider. If you have questions, please contact your health care provider. Indication: Postop Technique: AP hip centered pelvis and lateral view left hip Findings/Impression: Hardware from a left total hip arthroplasty is in satisfactory position. Bone alignment is normal. No sign of acute fracture. Postop changes are within normal limits. Dictated by Mohit Maharaj MD @ 12/31/2023 11:16:34 AM (Electronically Signed)
--- NOTE | 2023-12-30 15:02 | P.ORPRC_ITS ---
Procedure Note Date of procedure: 12/30/23 Procedure: PREOPERATIVE DIAGNOSIS: Left hip osteoarthritis POSTOPERATIVE DIAGNOSIS: Left hip osteoarthritis NAME OF OPERATION: Left total hip arthroplasty SURGEON: Paco Hutchins MD CLOTH STOCK SORTER: Erlinda Clayton PA-C, BRAYDEN Schwartz IMPLANTS: 1. [employer] [place] # 48 sector ingrowth cup 2. 32 x 48 +4 neutral polyethylene 3. Actis #4 standard collared ingrowth stem 4. 32 +1 ceramic femoral head ANESTHESIA: Spinal ESTIMATED BLOOD LOSS: 350 cc COMPLICATIONS: None SPECIMENS: None DRAINS: None PREOPERATIVE ANTIBIOTICS: Ancef 1 grams INDICATIONS: The patient is a 58-year-old with a longstanding history of severe, unrelenting left hip pain secondary to end-stage left hip osteoarthritis. Despite appropriate nonoperative management, including activity modification, use of an assist device, anti-inflammatories, [id number] pain medication, physical therapy and injections, they continue to have pain and disability. Operative intervention was offered. The risks, benefits and expected outcomes were discussed in detail. These included but were not limited to: Infection, bleeding, injury to blood vessel or nerve, venous thromboembolism. All questions were answered to their satisfaction. Use of an preschool assistant principal was necessary throughout the case for patient positioning and safety, soft tissue retraction and closure. PROCEDURE: The patient was placed supine on the Geronimo table. General anesthesia was administered. The preschool assistant principal made sure the patient was properly positioned. The left hip was prepped and draped in the usual sterile fashion. The image intensifier was brought in for a perfect AP pelvis and a perfect double tear drop AP view of each hip which were used for intraoperative templating with our fluoroscopic guide. An oblique incision was made 3 cm distal and 3 cm lateral to the anterior superior iliac spine. The preschool assistant principal retracted the soft tissues to protect them. Subcutaneous dissection was taken with electrocautery to the superficial fascia. The fascia was divided in line with the incision. Blunt dissection was carried medially to the tensor fascia donato and sartorius interval. Deep dissection was carried with electrocautery. The circumflex vessels were cauterized and divided. The capsule was exposed and then divided in a T- fashion, tagged with #1 Ethibond sutures. Retractors were placed in the joint, held by the preschool assistant principal. The corkscrew was placed in the femoral head. The neck cut was made in the subcapital region. We made a second neck cut more distal. The napkin ring of bone was removed. The femoral head was removed intact. Acetabular retractors were placed, held by the preschool assistant principal. The labrum was sharply debrided. The capsule was released. The 43 mm reamer was used to the true medial wall. We then enlarged in 2 mm increments using the image intensifier for our reamer placement. We impacted the cup which had excellent purchase. We placed the polyethylene. Attention was then turned to the proximal femur. The limb was placed in 140 degrees of external rotation, maximum extension and adduction. A significant amount of time was spent releasing the capsule to allow us to deliver the femur into the wound and complete the femoral side safely. Retractors were held by the preschool assistant principal throughout the femoral preparation. The hot box checker and canal finder were used. Broaches were used to a stable size. The calcar reamer was used. Trial components were placed. The hip was reduced and was found to be stable with appropriate soft tissue tension. Length and offset had been nicely restored using the image intensifier and our fluoroscopic guide. Trial components were removed. The stem was impacted. We placed the femoral head. Again, the hip was reduced and was found to be stable with appropriate soft tissue tension. Length and offset had been nicely restored. The preschool assistant principal did a three minute dilute Betadine solution soak. The preschool assistant principal irrigated the wound with 3 liters of normal saline via pulse lavage. The preschool assistant principal repaired the anterior capsule with a #1 Vicryl and our previously placed Ethibond sutures. The preschool assistant principal closed the fascia over the tensor fascia donato with a #1 PDO Stratafix, subcutaneous tissues with 2-0 Vicryl, skin with a running 3-0 Stratafix and glue. A dry dressing was applied by the preschool assistant principal. Sponge and needle counts were correct x 2. The patient tolerated the procedure well; there were no apparent complications. They were awakened and extubated in the operating room, sent to the Post-Anesthesia Care Unit in satisfactory condition. PLAN: 1. The patient will be mobilized with physical therapy, weight-bearing as tolerates 2. Xarelto x 5 days then aspirin x 30 days will be used for DVT prophylaxis 3. The patient will be discharged once medically appropriate
--- NOTE | 2023-12-30 15:57 | W.ANESCHARGE ---
Anesthesia Charges Start Date/Time Anesthesia Start Date: 12/30/23 Anesthesia Start Time: 13:13 Stop Date/Time Anesthesia Stop Date: 12/30/23 Anesthesia Stop Time: 15:53
[2023-12-30] MEDS: CEFAZOLIN 1 GM in 0.9 % SODIUM CHLORIDE Mini-bag 100 ML IVPB (17:30)
--- NOTE | 2023-12-30 18:22 | PM.IMCN1 ---
Date of Consult Consult date: 12/30/23 Primary Care Provider: Bouchra Acevedo, ELEANOR, CARDIOVASCULAR PHYSICIAN ASSISTANT Consult Narrative Narrative: Maggie Koehler is a 58 year old female with past medical history of HLD, Lt hip osteoarthritis, Hx of Lt breast cancer s/p Bilateral Mastectomy and anxiety and depression who presents for Left total hip arthroplasty. Total blood loss during his surgery was about 350 mL. Post operatively, patient was hemodynamically stable. Patient is doing well. Pain is controlled with pain medications. Patient states that she made a lower than usual amount of urinary output just after her surgery. We will monitor his urinary output and bladder scan if needed. Last bowel movement was today morning. Review of Systems Status of ROS: Reports: 6 or more systems reviewed and unremarkable except as noted in History and below PFSH PFS Medical History (Updated 12/30/23 @ 18:56 by Rajni Chauhan MD) Temporomandibular joint disorder (06/17/13) ?M26.609 - Unspecified temporomandibular joint disorder, unspecified side (ICD-10) Malignant neoplasm of skin of lower breast (01/21/23) ?C44.501 - Unspecified malignant neoplasm of skin of breast (ICD-10) Depression (07/01/07) ?F32.A - Depression, unspecified (ICD-10) Family history of aortic aneurysm ?Z82.49 - Family history of ischemic heart disease and other diseases of the circulatory system (ICD-10) Fatigue ?R53.83 - Other fatigue (ICD-10) Nicotine dependence ?F17.200 - Nicotine dependence, unspecified, uncomplicated (ICD-10) Dislocation of temporomandibular joint ?S03.00XA - Dislocation of jaw, unspecified side, initial encounter (ICD-10) Surgical History (Updated 12/30/23 @ 18:54 by Rajni Chauhan MD) History of total left hip arthroplasty (12/30/23) ?Z96.642 - Presence of left artificial hip joint (ICD-10) History of total hip replacement ?Z96.649 - Presence of unspecified artificial hip joint (ICD-10) History of left oophorectomy ?Z90.721 - Acquired absence of ovaries, unilateral (ICD-10) History of colonoscopy ?Z98.890 - Other specified postprocedural states (ICD-10) History of arthroscopy ?Z98.890 - Other specified postprocedural states (ICD-10) S/P bilateral mastectomy ?Z90.13 - Acquired absence of bilateral breasts and nipples (ICD-10) Amputation of finger of left hand ?S68.119A - Complete traumatic metacarpophalangeal amputation of unspecified finger, initial encounter (ICD-10) Family History Brother AAA (abdominal aortic aneurysm) Father Alzheimers disease Social History (Updated 09/07/22 @ 11:54 by Bouchra Acevedo, PARARESCUE CRAFTSMAN, CARDIOVASCULAR PHYSICIAN ASSISTANT) Narrative: The patient lives with her significant other near [place]. No children. She is sexually active. She is a current everyday smoker, smoking 5-6 cigarettes per day for 20+ years. She does not drink alcohol. No recreational drug use. 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 What is your current living situation?: I presently have a place to live Problems where you live: no known problems Problems where you live details: n/a In the past 12 months, utilities in danger of being shut off: no In past 12 months, lack of transportation kept you from medical appts, meetings, work, or getting things needed for daily living: no In the past 12 mos, have been you worried that your food would run out before you had money to buy more?: never true In the past 12 mos, the food you bought just didn't last and you didn't have money to buy more?: never true Smoking Status: Never smoker Second hand tobacco smoke exposure: No How often do you have a drink containing alcohol: never AUDIT-C Alcohol total score: 0 Non-prescribed substance use: denies use Caffeine: No How often does anyone, including family, friends and others, physically hurt you: never How often does anyone, including family, friends and others, insult or talk down to you: never How often does anyone, including family, friends and others, threaten you with harm: never How often does anyone, including family, friends and others, scream or curse at you: never Little interest or pleasure in doing things: not at all Feeling down, depressed, or hopeless: not at all service: No Meds Home Medications and Allergies Home Medications ?Medication ?Instructions ?Recorded ?Confirmed ?Type ibuprofen 200 mg tablet (Advil) 400 mg PO Q8H PRN 08/05/23 12/30/23 History multivitamin 1 tab PO DAILY 08/05/23 12/30/23 History zinc gluconate 50 mg tablet 50 mg PO DAILY 08/05/23 12/30/23 History anastrozole 1 mg tablet 1 mg PO DAILY 12/30/23 12/30/23 History atorvastatin 20 mg tablet 20 mg PO HS 12/30/23 12/30/23 History sertraline 50 mg tablet (Zoloft) 50 mg PO DAILY 12/30/23 12/30/23 History trazodone 50 mg tablet 50 mg PO HS PRN insomnia 12/30/23 12/30/23 History Allergies Allergy/AdvReac Type Severity Reaction Status Date / Time No Known Allergies Allergy Unknown Verified 12/30/23 11:37 Exam Narrative: Exam Narrative: Physical exam GENERAL: Comfortable, no acute distress. HEAD AND NECK: Atraumatic, normocephalic CARDIOVASCULAR: RRR. Normal S1, S2. No murmurs. RESPIRATORY: Clear to auscultation B/L. Good air entry B/L. No wheezes or rhonchi. GASTROINTESTINAL: Not distended, not tender to palpation. NEUROLOGY: Alert, awake, oriented X 3. Normal speech. PSYCH: Normal mood, normal affect. Const: Vital Signs, click to edit/add: Vital Signs - 24 hr 12/30/23 11:40 12/30/23 12:33 12/30/23 12:35 Temperature 97.8 F Pulse Rate 63 65 72 Respiratory Rate 16 16 16 Blood Pressure 120/64 116/63 104/67 Pulse Oximetry 96 97 97 Oxygen Delivery Me thod Room Air Nasal Cannula Nasal Cannula Oxygen Flow Rate 2 2 12/30/23 12:40 12/30/23 15:50 12/30/23 15:55 Temperature 98.1 F Pulse Rate 61 63 63 Respiratory Rate 16 13 12 Blood Pressure 106/63 118/73 119/93 H Pulse Oximetry 97 94 97 Oxygen Delivery Me thod Nasal Cannula Room Air Room Air Oxygen Flow Rate 2 12/30/23 16:00 12/30/23 16:05 12/30/23 16:10 Temperature 98.2 F Pulse Rate 67 67 62 Respiratory Rate 14 16 16 Blood Pressure 119/63 125/65 125/65 Pulse Oximetry 95 96 95 Oxygen Delivery Me thod Room Air Room Air Room Air Oxygen Flow Rate 12/30/23 16:15 12/30/23 16:20 12/30/23 16:30 Temperature 99 F 97.8 F Pulse Rate 56 L 60 55 L Respiratory Rate 16 14 16 Blood Pressure 120/63 125/69 120/59 L Pulse Oximetry 94 95 96 Oxygen Delivery Me thod Room Air Room Air Room Air Oxygen Flow Rate 12/30/23 16:45 12/30/23 17:00 12/30/23 17:15 Temperature 97.1 F L 96.8 F L 97.1 F L Pulse Rate 59 L 60 61 Respiratory Rate 16 16 16 Blood Pressure 106/70 117/68 118/68 Pulse Oximetry 95 96 97 Oxygen Delivery Me thod Room Air Room Air Room Air Oxygen Flow Rate 12/30/23 17:30 Temperature Pulse Rate 67 Respiratory Rate 16 Blood Pressure 122/59 L Pulse Oximetry 97 Oxygen Delivery Me thod Room Air Oxygen Flow Rate Assessment and Plan Assessment and plan (1) Status post total hip replacement, left: Problem comment: -Start early ambulation with physical therapy, weight-bearing as tolerates. -Start DVT prophylaxis tomorrow morning with Xarelto 10mg QD for 5 days then aspirin x 30 days. -Monitor for urine output postoperatively, bladder scan if needed. -Encourage patient to use incentive spirometry. Status: Acute (2) Osteoarthritis of left hip: Problem comment: s/p LTHA Status: Acute (3) Transaminitis: Problem comment: -mild elevation, AST > ALT -patient denies frequent alcohol use -patient has been taking very high doses of Tylenol , patient was advised to lower her acetaminophen dose and discuss workup with her primary care physician as an outpatient. Status: Acute (4) Invasive lobular carcinoma of breast in female: Problem comment: - s/p Bilateral Mastectomy (2022). -On Anastrozole 1 mg QD. Status: Acute (5) Prophylactic use of aromatase inhibitors: Problem comment: -On Anastrozole 1 mg QD. -Initiated March 2023. Normal bone density at baseline. Bisphosphonates not initiated due to dentist not providing dental clearance. -Resume Anastrozole Status: Acute (6) Dyslipidemia: Problem comment: on Atorva 20 mg QD Status: Chronic (7) Anxiety and depression: Status: Acute Total Time Spent Total Time Spent: Time spent: Today I spent 75 minutes seeing the patient, discussing the patient with ER staff, reviewing Expanse and EPIC notes/diagnostics, discussing the care plan with our care time that includes, PT/OT, pharmacy and documenting my impressions and plan in the medical record.
[2023-12-30] MEDS: OXYCODONE 5 MG TABLET PO (20:22)
[2023-12-30] MEDS: SENNOSIDES 1 TAB TABLET 2 TAB PO (20:23)
[2023-12-31 02:15] VITALS: BP 112/65; PULSE 73; RESP 18; TEMP 36.2; O2SAT 94
[2023-12-31] MEDS: CEFAZOLIN 1 GM in 0.9 % SODIUM CHLORIDE Mini-bag 100 ML IVPB (02:25)
[2023-12-31] MEDS: OXYCODONE 5 MG TABLET PO ×3 (02:38→08:42)
[2023-12-31] MEDS: ACETAMINOPHEN 500 MG TABLET 1000 MG PO (05:52)
[2023-12-31 06:35] LABS: Basophils Absolute Auto 0.01 K/uL (0.00-0.30); Basophils Percent Auto 0.1 % (0.0-3.0); Eosinophils Absolute Auto 0.01 K/uL (0.00-0.50); Eosinophils Percent Auto 0.1 % (0.0-7.0); Hematocrit 33.2 % (33.0-51.0); Hemoglobin* 10.8 gm/dL (12.0-16.0); Immature Granulocytes Abs Auto 0.04 K/uL (0.00-0.30); Immature Granulocytes Pct Auto 0.5 %; Lymphocytes Percent Auto 11.3 % (20-44); Mean Corpuscular HGB Conc 33 gm/dL (32-36); Mean Corpuscular Hemoglobin 32 pg (26-34); Mean Corpuscular Volume 98 fL (80-100); Monocytes Percent Auto 8.9 % (0.0-11.0); Neutrophils Percent Auto 79.1 % (42.0-72.0); Platelet Count* 267 K/uL (140-440); Red Blood Count 3.39 m/uL (4.00-5.20); White Blood Count* 8.22 K/uL (4.50-11.00)
[2023-12-31 06:44] LABS: Slide Review Reflex No
[2023-12-31 06:45] LABS: Sodium* 136 mmol/L (135-149)
[2023-12-31 06:49] LABS: Blood Urea Nitrogen* 15 mg/dL (7-30); Creatinine* 0.5 mg/dL (0.5-1.5); Est. Creatinine Clearance* 112.01; Estimated Glomerular Filt Rate 107 ml/min
--- NOTE | 2023-12-31 07:31 | PC.NURSE ---
Patient pleasant, alert and oriented. Ambulating with walker and stand by assist. Tolerating regular diet. Dressing clean, dry and intact. Reported pain rated 3-8/10 in left hip and left knee pain rated 4/10. PRN Oxycodone and scheduled Tylenol given. Ice pack applied to surgical site.?
--- NOTE | 2023-12-31 07:34 | PM.ORPN ---
Subjective Subjective Time Seen by Provider: 07:34 Date Seen: 12/31/23 Principal diagnosis: Status post Left hip replacement 12/30/2023 Interval history: Angle is comfortable at rest this morning. She states she has some discomfort, however different than preoperative. She has ambulated to the bathroom without problem. She denies nausea and vomiting. She plans to discharge today to home. Ortho Exam Narrative Exam Narrative: Alert and oriented x3. Patient is in no acute distress. Converses without labored breathing. Hearing is grossly intact. Ambulates with a walker. Examination of the left hip shows the dressing is intact. No erythema or warmth or sign of infection. Little to no soft tissue edema about the hip currently. Small area of ecchymosis. Area of numbness over the anterior thigh distal to the incision otherwise CMS intact left lower extremity. Calves are soft and nontender. She is not able to straight leg raise. Const Vital Signs, click to edit/add: Vital Signs - 24 hr 12/30/23 11:40 12/30/23 12:33 12/30/23 12:35 Temperature 97.8 F Pulse Rate 63 65 72 Pulse Rate [Pulse Oximeter] Respiratory Rate 16 16 16 Blood Pressure 120/64 116/63 104/67 Blood Pressure [Right Arm] Pulse Oximetry 96 97 97 Oxygen Delivery Method Room Air Nasal Cannula Nasal Cannula Oxygen Flow Rate 2 2 12/30/23 12:40 12/30/23 15:50 12/30/23 15:55 Temperature 98.1 F Pulse Rate 61 63 63 Pulse Rate [Pulse Oximeter] Respiratory Rate 16 13 12 Blood Pressure 106/63 118/73 119/93 H Blood Pressure [Right Arm] Pulse Oximetry 97 94 97 Oxygen Delivery Method Nasal Cannula Room Air Room Air Oxygen Flow Rate 2 12/30/23 16:00 12/30/23 16:05 12/30/23 16:10 Temperature 98.2 F Pulse Rate 67 67 62 Pulse Rate [Pulse Oximeter] Respiratory Rate 14 16 16 Blood Pressure 119/63 125/65 125/65 Blood Pressure [Right Arm] Pulse Oximetry 95 96 95 Oxygen Delivery Method Room Air Room Air Room Air Oxygen Flow Rate 12/30/23 16:15 12/30/23 16:20 12/30/23 16:30 Temperature 99 F 97.8 F Pulse Rate 56 L 60 55 L Pulse Rate [Pulse Oximeter] Respiratory Rate 16 14 16 Blood Pressure 120/63 125/69 120/59 L Blood Pressure [Right Arm] Pulse Oximetry 94 95 96 Oxygen Delivery Method Room Air Room Air Room Air Oxygen Flow Rate 12/30/23 16:45 12/30/23 17:00 12/30/23 17:15 Temperature 97.1 F L 96.8 F L 97.1 F L Pulse Rate 59 L 60 61 Pulse Rate [Pulse Oximeter] Respiratory Rate 16 16 16 Blood Pressure 106/70 117/68 118/68 Blood Pressure [Right Arm] Pulse Oximetry 95 96 97 Oxygen Delivery Method Room Air Room Air Room Air Oxygen Flow Rate 12/30/23 17:30 12/30/23 18:00 12/30/23 18:30 Temperature 97.2 F L Pulse Rate 67 73 68 Pulse Rate [Pulse Oximeter] Respiratory Rate 16 16 16 Blood Pressure 122/59 L 129/69 130/71 Blood Pressure [Right Arm] Pulse Oximetry 97 95 95 Oxygen Delivery Method Room Air Room Air Room Air Oxygen Flow Rate 12/30/23 19:36 12/30/23 19:37 12/30/23 20:26 Temperature 97.3 F L 97.3 F L 97.5 F L Pulse Rate 66 68 Pulse Rate [Pulse Oximeter] 66 Respiratory Rate 16 16 16 Blood Pressure 128/65 127/61 Blood Pressure [Right Arm] 128/65 Pulse Oximetry 97 97 97 Oxygen Delivery Method Room Air Room Air Room Air Oxygen Flow Rate 0 0 12/30/23 21:13 12/30/23 22:04 12/30/23 23:00 Temperature 97.5 F L 97.5 F L 97.6 F Pulse Rate 68 73 Pulse Rate [Pulse Oximeter] 74 Respiratory Rate 16 16 18 Blood Pressure 109/56 L 105/55 L Blood Pressure [Right Arm] 106/58 L Pulse Oximetry 97 97 93 Oxygen Delivery Method Room Air Room Air Room Air Oxygen Flow Rate 0 0 12/30/23 23:00 12/31/23 02:15 Temperature 97.2 F L Pulse Rate Pulse Rate [Pulse Oximeter] 73 Respiratory Rate 18 18 Blood Pressure Blood Pressure [Right Arm] 112/65 Pulse Oximetry 93 94 Oxygen Delivery Method Room Air Room Air Oxygen Flow Rate Assessment and Plan Assessment and plan (1) Status post total hip replacement, left: Problem details: -Start early ambulation with physical therapy, weight-bearing as tolerates. -Start DVT prophylaxis tomorrow morning with Xarelto 10mg QD for 5 days then aspirin x 30 days. -Monitor for urine output postoperatively, bladder scan if needed. -Encourage patient to use incentive spirometry. 12/30/2023Cuong Status: Acute Assessment and Plan: Plan for discharge is today, and when they meets discharge criteria. DVT prophylaxis Xarelto 10 mg daily for a total of 5 days, then aspirin 81 mg b.i.d. for 4 weeks. Ambulate every hour throughout the day. Remove dressing 1 week. Observe wound and phone Orthopedics with any questions or concerns Use Ice on operative hip unrestricted. Return to clinic in 1 week with PA for a wound check Return to clinic in 6 weeks with surgeon Minimize narcotic use. Wean off and discontinue soon as possible. Activities as tolerated. No strenuous activity. Attend outpt PT Compression stocks as needed for edema.
[2023-12-31 08:29] VITALS: BP 115/73; PULSE 77; RESP 18; TEMP 36.1; O2SAT 96
[2023-12-31] MEDS: SERTRALINE 50 MG TABLET PO (08:42)
[2023-12-31] MEDS: RIVAROXABAN 10 MG TABLET PO (08:42)
[2023-12-31] MEDS: SENNOSIDES 1 TAB TABLET 2 TAB PO (08:42)
[2023-12-31 10:11] VITALS: RESP 18; O2SAT 96
[2023-12-31 10:12] VITALS: PULSE 77; RESP 18
--- NOTE | 2023-12-31 10:52 | PC.NURSE ---
Discharge: Patient pleasant and cooperative, A&O. VSS, afebrile. Patient rates pain on left hip a / this shift, managed with PRN medication, see MAR. Dressing to left hip C/D/I. 1A with walker and gait belt. IV removed with tip intact. Discharge instructions provided, all questions answered. Discharged to home with significant other at 1050.
== END 2023-12-31 10:50 | disposition home or self-care (01) ==
LOC: OR 11:06 → MEDSURG 11:08
PROVIDERS: PCP Nurse Practitioner Family; Visit Provider Orthopaedic Surgery
PROC: (CPT 27130; principal; 2023-12-30 12:30)
DX: M16.12 Unilateral primary osteoarthritis, left hip (principal); G89.18 Other acute postprocedural pain; E78.5 Hyperlipidemia, unspecified; Z85.3 Personal history of malignant neoplasm of breast; F41.9 Anxiety disorder, unspecified; F32.A Depression, unspecified; F17.210 Nicotine dependence, cigarettes, uncomplicated; R74.01 Elevation of levels of liver transaminase levels
CPT/HCPCS: 27130; 01214; 36415; 64450; 73501; 76942; 82565; 84132; 84295; 84520; 85025; 86850; 86900; 86901; 97110; 97116; 97161; 97165; 97530; 97535; A9270; C1776; J0330; J0690; J2250; J2371; J2704; J2795; J3010; J7120

== ENCOUNTER 2024-03-02 14:42 | Outpatient (RCR) | payer BC, SELFPAY | END 2024-08-29 23:59 | disposition home or self-care (01) | LOC: CCIC 14:42 | PROVIDERS: PCP Nurse Practitioner Family; Visit Provider Internal Medicine Hematology & Oncology | DX: C50.912 Malignant neoplasm of unspecified site of left female breast (principal); Z17.0 Estrogen receptor positive status [ER+]; Z90.13 Acquired absence of bilateral breasts and nipples; L98.8 Other specified disorders of the skin and subcutaneous tissue; R22.2 Localized swelling, mass and lump, trunk; Z79.811 Long term (current) use of aromatase inhibitors; Z87.891 Personal history of nicotine dependence | CPT/HCPCS: 99213; 99214; G0463 ==

== ENCOUNTER 2024-05-11 08:26 | Outpatient (CLI) | payer BC, SELFPAY | END 2024-05-11 08:27 | disposition home or self-care (01) | PROVIDERS: PCP Nurse Practitioner Family; Visit Provider Nurse Practitioner Family | DX: E78.5 Hyperlipidemia, unspecified (principal); D64.9 Anemia, unspecified; Z13.0 Encounter for screening for diseases of the blood and blood-forming organs and certain disorders involving the immune mechanism | CPT/HCPCS: 80053; 80061; 85025 ==

== ENCOUNTER 2024-06-28 15:36 | Outpatient (CLI) | payer BC, SELFPAY ==
--- NOTE | 2024-06-28 16:00 | CRLHL7_ITS ---
For Patients: As a result of the Century Cures Act, medical imaging exams and procedure reports are released immediately into your electronic medical record. You may view this report before your referring provider. If you have questions, please contact your health care provider. INDICATION: Lung cancer screening. Significant smoking history. TECHNIQUE: Low-dose volumetric helical scanning of the thorax was performed without IV contrast material. Coronal and sagittal reconstructions were obtained. COMPARISON: None FINDINGS: No pulmonary nodule is identified. Mild left-sided volume loss is demonstrated along with fibrosis in the periphery of the left upper lobe. No acute infiltrate is noted. There is no significant airway abnormality. No pleural effusion is demonstrated. There is no mediastinal or hilar lymph adenopathy. The heart size is normal. Calcified coronary arterial plaque is noted. Images of the upper abdomen are unremarkable. IMPRESSION: 1. Negative for the purpose of lung cancer screening. Lung-RADS CATEGORY 1: NEGATIVE: Continue annual screening with low-dose chest CT in 12 months is recommended. 2. Mild left-sided volume loss and fibrosis in the periphery of the left upper lobe. 3. Coronary artery disease. Please note that all CT scans at this facility use dose modulation, iterative reconstruction, and/or weight-based dosing when appropriate to reduce radiation dose to as low as reasonably achievable. Dictated by Lawrence Bowling MD @ 06/29/2024 10:30:28 AM (Electronically Signed)
== END 2024-06-28 15:37 | disposition home or self-care (01) ==
LOC: CT 15:37
PROVIDERS: PCP Nurse Practitioner Family; Visit Provider Nurse Practitioner Family
DX: Z12.2 Encounter for screening for malignant neoplasm of respiratory organs (principal); J84.10 Pulmonary fibrosis, unspecified; I25.10 Atherosclerotic heart disease of native coronary artery without angina pectoris; Z87.891 Personal history of nicotine dependence
CPT/HCPCS: 71271

== ENCOUNTER 2024-09-14 14:09 | Outpatient (CLI) | payer BC, SELFPAY ==
--- NOTE | 2024-09-14 14:30 | CRLHL7_ITS ---
For Patients: As a result of the 21st Century Cures Act, medical imaging exams and procedure reports are released immediately into your electronic medical record. You may view this report before your referring provider. If you have questions, please contact your health care provider. INDICATION: Low back pain. COMPARISON: None. TECHNIQUE: Sagittal T1, T2, and STIR sequences. Axial T1 and T2 weighted sequences. Post gadolinium T1 weighted sequences. Gadolinium 15 cc IV. FINDINGS: Degenerative grade 1 anterolisthesis of L4 on L5 measures approximate 5 mm. Otherwise, normal alignment. No fractures. No vertebral body loss of height. No ligamentous injury. No suspicious osseous lesions. Normal conus terminates at T12-L1. Lumbar spondylosis with multilevel disc degeneration facet arthropathy. There is marrow edema of the articular processes of the left L4-5 facet joint which may be secondary to stress reaction or mild inflammation from facet arthritis. Associated surrounding reactive enhancement T12-L1: No spinal canal neural foraminal narrowing. L1-2: Disc degeneration posterior disc bulge. Flattening of ventral thecal sac and mild narrowing of spinal canal. No neural foraminal narrowing. L2-3: Disc degeneration and loss disc height. Modic type 1 endplate changes. Diffuse disc bulge. Mild narrowing of spinal canal. Mild narrowing of bilateral foramina. Mild facet arthropathy. L3-4: Disc degeneration posted disc bulge. No narrowing of spinal canal. Mild narrowing of left neural foramen. No narrowing of the right neural foramen. Mild facet arthropathy. L4-5: Grade 1 anterolisthesis. Disc degeneration and posterior disc bulge. Mild narrowing of spinal canal. Left subarticular recess narrowing. Potential impingement of the traversing left L5 nerve root. No neural foraminal narrowing. Mild facet arthropathy. L5-S1: No narrowing of spinal canal. No impingement of traversing S1 nerve roots. No neural foraminal narrowing. Normal visualized SI joints. Normal paraspinal soft tissues. IMPRESSION: 1. Degenerative grade 1 anterolisthesis of L4 on L5. Otherwise normal alignment. No fractures 2. Lumbar spondylosis. Marrow edema of the articular processes of left L4-5 facet joints which may be secondary to stress reaction or mild inflammation 3. At L4-5, mild narrowing of the spinal canal. Potential impingement of the traversing left L5 nerve root. 4. No spinal canal or neural foraminal narrowing at the remaining levels Dictated by Thomas Hodge MD @ 09/15/2024 3:00:08 PM (Electronically Signed)
== END 2024-09-14 14:10 | disposition home or self-care (01) ==
LOC: MRI 14:09
PROVIDERS: PCP Nurse Practitioner Family; Visit Provider Physician Assistant
DX: M54.50 Low back pain, unspecified (principal); M51.369 Other intervertebral disc degeneration, lumbar region without mention of lumbar back pain or lower extremity pain; M47.896 Other spondylosis, lumbar region; C50.919 Malignant neoplasm of unspecified site of unspecified female breast
CPT/HCPCS: 72158; A9575

== ENCOUNTER 2024-10-20 09:50 | Outpatient (CLI) | payer BC, SELFPAY | END 2024-10-20 09:51 | disposition home or self-care (01) | LOC: NFLDREF 10-25 10:37 | PROVIDERS: PCP Nurse Practitioner Family; Referring Provider Nurse Practitioner Family; Visit Provider Physician Assistant | DX: D64.9 Anemia, unspecified (principal) | CPT/HCPCS: 80076; 82607; 82728; 82747; 83540; 83550; 83921; 84443; 85025 ==

== ENCOUNTER 2024-11-27 07:57 | Outpatient (CLI) | payer BC, SELFPAY ==
--- NOTE | 2024-11-27 09:23 | P.ANES_ITS ---
Anesthesia Charges Start Date/Time Anesthesia Start Date: 11/27/24 Anesthesia Start Time: 08:40 Stop Date/Time Anesthesia Stop Date: 11/27/24 Anesthesia Stop Time: 09:20 Coding CPT Codes CPT Codes: ANES UPR LWR GI NDSC PX - 64560 ([id number]) P2 - PATIENT W/MILD SYST DISEASE, QK - RADIO TIME BUYER 2-4 CNCRNT ANES PROC, QX - MEDICAL INSURANCE CLERK SVC W/ MD MED DIRECTION
--- NOTE | 2024-11-27 09:23 | W.ANESCHARGE ---
Anesthesia Charges Start Date/Time Anesthesia Start Date: 11/27/24 Anesthesia Start Time: 08:40 Stop Date/Time Anesthesia Stop Date: 11/27/24 Anesthesia Stop Time: 09:20 Coding CPT Codes CPT Codes: ANES UPR LWR GI NDSC PX - 15715 ([id number]) P2 - PATIENT W/MILD SYST DISEASE, QK - CARDIAC EXERCISE SPECIALIST 2-4 CNCRNT ANES PROC, QX - MINE INSPECTOR SVC W/ MD MED DIRECTION
--- NOTE | 2024-11-27 09:24 | P.ANES_ITS ---
Anesthesia Charges Start Date/Time Anesthesia Start Date: 11/27/24 Anesthesia Start Time: 08:40 Stop Date/Time Anesthesia Stop Date: 11/27/24 Anesthesia Stop Time: 09:20 Coding CPT Codes CPT Codes: ANES UPR LWR GI NDSC PX - 33028 ([id number]) P2 - PATIENT W/MILD SYST DISEASE, QK - HIGH SCHOOL MUSIC INSTRUCTOR 2-4 CNCRNT ANES PROC, QX - REVIEWER SALES SVC W/ MD MED DIRECTION
--- NOTE | 2024-11-27 09:24 | W.ANESCHARGE ---
Anesthesia Charges Start Date/Time Anesthesia Start Date: 11/27/24 Anesthesia Start Time: 08:40 Stop Date/Time Anesthesia Stop Date: 11/27/24 Anesthesia Stop Time: 09:20 Coding CPT Codes CPT Codes: ANES UPR LWR GI NDSC PX - 64744 ([id number]) P2 - PATIENT W/MILD SYST DISEASE, QK - LANDSCAPER 2-4 CNCRNT ANES PROC, QX - DIRECTOR INSTITUTION SVC W/ MD MED DIRECTION
== END 2024-11-27 07:58 | disposition home or self-care (01) ==
LOC: OP CLINIC 07:59
PROVIDERS: PCP Nurse Practitioner Family; Visit Provider Internal Medicine
DX: D50.0 Iron deficiency anemia secondary to blood loss (chronic) (principal); D12.0 Benign neoplasm of cecum; D12.5 Benign neoplasm of sigmoid colon; K57.30 Diverticulosis of large intestine without perforation or abscess without bleeding; K64.8 Other hemorrhoids
CPT/HCPCS: 00813; 43239; 45380; 88305; J2704; J3490

== ENCOUNTER 2025-01-25 15:13 | Outpatient (CLI) | payer BC, SELFPAY ==
--- NOTE | 2025-01-25 15:30 | CRLHL7_ITS ---
For Patients: As a result of the Century Cures Act, medical imaging exams and procedure reports are released immediately into your electronic medical record. You may view this report before your referring provider. If you have questions, please contact your health care provider. XR DXA BONE MINERAL DENSITY (BMD) Current height (in): 67.0. Weight (lb): 185.0. Menopause age: 57. Ethnicity: White. Reason for exam: penitentiary (current) use of aromatase inhibitors. 1. Have you had a previous hip or vertebral fracture? No. 2. Have you had any fractures during your adult life which did not result from significant trauma (e.g., auto accident)? No. 3. Did either of your parents have a hip fracture? No. 4. Do you smoke? No. 5. Have you ever taken Glucocorticoids? No. 6. Do you have rheumatoid arthritis? No. 7. Do you have secondary osteoporosis? No. 8. Do you drink 3 or more alcoholic drinks per day? No. 9. Are you being treated for osteoporosis? No. 10. Have you ever taken any of the following medications: Actonel, Evista, Fosamax, Miacalcin, Reclast, Boniva, Forteo, HRT (i.e. estrogen/hormone therapy), Protelos, Prolia, Vitamin D, Calcium, other ??? please specify. ANSWER: Yes, vitamin D, calcium. 11. Do you have any of the following medical conditions: Anorexia or bulimia, asthma or emphysema, end stage renal disease, hyperparathyroidism, any seizure disorders, cancer, inflammatory bowel diseases, hysterectomy, other ??? please specify. ANSWER: Yes, breast cancer. 12. What was your maximum height (inches)? 67. 13. Do you perform weight bearing exercise regularly? Yes. 14. Do you regularly consume dairy products? Yes. 15. Do you drink caffeinated beverages? Yes. 16. At what age did your period start? 13. 17. Are you premenopausal? No. 18. How many full-term pregnancies have you had? 0. 19. Have you ever missed your period for more than 6 months in a row (not including or menopause)? No. TECHNIQUE: Bone mineral density study was performed using the [employer]. FINDINGS: The results of the study expressed as bone mineral density (BMD) are as follows: Lumbar spine L2 to L4: BMD: 1.314 g/cm2. T-score: 2.1. Z-score: 3.7 Left Radius Left 33%: BMD: 0.769 g/cm2. T-score: 1.3. Z-score: 2.6 Right Radius Right 33%: BMD: 0.686 g/cm2. T-score: -0.1. Z-score: 1.2 IMPRESSION: Normal bone density. COMPARISON: Compared with scan of 01/20/2023, the bone mineral density has decreased by 3.1 percent at the spine. Samantha Salinas M.D. Body/Diagnostic Radiologist [email or web address] Transcribed: 8:38 am DW/Dictated by: Samantha Salinas MD @ 01/26/2025 3:17:00 AM (Electronically Signed)
== END 2025-01-25 15:14 | disposition home or self-care (01) ==
PROVIDERS: PCP Nurse Practitioner Family; Visit Provider Physician Assistant
DX: Z79.811 Long term (current) use of aromatase inhibitors (principal); D50.9 Iron deficiency anemia, unspecified
CPT/HCPCS: 77080

== ENCOUNTER 2025-02-19 12:30 | Outpatient (RCR) | payer BC, SELFPAY ==
[2024-08-31 16:15] LABS: Hematocrit* 34.0 % (33.0-51.0); Hemoglobin* 10.8 gm/dL (12.0-16.0); Mean Corpuscular HGB Conc 32 gm/dL (32-36); Mean Corpuscular Hemoglobin 30 pg (26-34); Mean Corpuscular Volume 96 fL (80-100); Red Blood Count* 3.56 m/uL (4.00-5.20); White Blood Count* 3.74 K/uL (4.50-11.00)
[2024-08-31 16:29] LABS: Slide Review Reflex No
--- NOTE | 2024-09-21 13:34 | ONC.NURNOTE ---
MRI of lumbar spine reviewed by Caty Villa PA-C. Per Caty, no cancer, can follow up with her primary care provider for the back pain. Hgb 10.8, Caty did order labs to be done end of September. Investigation Division Sergeant called pt with the information. She would like to have the labs done in [place], lab orders faxed to [facility].
--- NOTE | 2024-10-26 15:31 | ONC.NURNOTE ---
Labs reviewed by Caty Villa PA-C, she is recommending pt contact her primary care provider regarding low iron and if pt should have an EGD/colonoscopy sooner than 2025. Pt verbalized understanding of recommendations and will reach out to her primary care physician.
--- NOTE | 2025-01-19 14:05 | ONC.NURNOTE ---
Per radiology patient had question regarding bone density test ordered by Rea Villa. Travel Information Center Supervisor called patient and let her know that she needed test since its been 2 years and she is on an Aromatase inhibitor. Patient voiced frustration in not knowing what was going on regarding her care due to receiving letter that Rea Villa and Dr. Hummel had both left and nobody called her to tell her what the plan would be. Also ticket writer unable to explain what bone density machine was like. Travel Information Center Supervisor stated same as January 2023-basically an x-ray machine to test the calcium in the bones. Also offered to send patient to radiology department to find out exactly how machine works as that is not writers department. Patient then just said forget it and hung up
== END 2025-02-27 23:59 | disposition home or self-care (01) ==
LOC: CCIC 12:30
PROVIDERS: Physician Assistant; PCP Nurse Practitioner Family; Visit Provider Internal Medicine Hematology & Oncology
DX: C50.912 Malignant neoplasm of unspecified site of left female breast (principal); Z17.0 Estrogen receptor positive status [ER+]; Z79.811 Long term (current) use of aromatase inhibitors; D64.9 Anemia, unspecified
CPT/HCPCS: 36415; 85027; 99214; 99215; G0463